=== PATIENT | male | born 1940 | race Caucasian/White ===

== ENCOUNTER 2017-02-01 07:10 | Inpatient (IN) | payer MEDICARE, BC ==
[~2017-02-01] VITALS: Ht 182.9 cm; Wt 73.7 kg
[2017-02-01] VITALS (12 sets, daily range): BP systolic 107–147; BP diastolic 61–71
[~2017-02-01 07:10] MED LIST: AMLO10TA2 PO; ASPI-482 PO; ATOR40TA59 PO; DOXA4TAB3 PO; HYDR-971 PO; IBUP200T43 PO; METH4TAB PO; METO50TA10 PO; MOXI3DRO2 RIGHTEYE; NEPA1.7D RIGHTEYE; PRED5DRO16 RIGHTEYE
[2017-02-01] MEDS ORDERED: DEXAMETHASONE SOD PHOS 10 MG/ML VIAL IM ONE (08:00)
--- NOTE | 2017-02-01 08:01 | ED.ADGEN ---
Past History Past Medical History: Alcoholism, High Cholesterol, Hypertension Past Surgical History: No Surgical History Alcohol Use: Heavy Drug Use: None Adult General HPI HPI Patient is a 76-year-old male presents emergency department complaining of right sided back pain and sciatica. Patient states he has had an MRI and is been diagnosed in the past with sciatica. It is bothering him particularly right now but he denies any new trauma or injury to the area. Patient states he has pain medication at home but does not take it due to the fact that it constipates him. Patient denies any bowel or bladder dysfunction or saddle anesthesia. Patient also tells me he has been drinking almost daily for about a month. He has no intention of seeking help for his alcohol drinking at this time. He does state that he is falls frequently and has some bruising but that he is "tough" and does not need any attention to those areas right now. Review of Systems Review of Systems Constitutional: Denies fever or chills [] Eyes: Denies change in visual acuity, redness, or eye pain [] HENT: Denies nasal congestion or sore throat [] Respiratory: Denies cough or shortness of breath [] Cardiovascular: No additional information not addressed in HPI [] GI: Denies abdominal pain, nausea, vomiting, bloody stools or diarrhea [] : Denies dysuria or hematuria [] Musculoskeletal: Denies back pain or joint pain [] Integument: Denies rash or skin lesions [] Neurologic: Denies headache, focal weakness or sensory changes [] Endocrine: Denies polyuria or polydipsia [] Current Medications Current Medications Current Medications Medications (Trade) Dose Ordered Sig/[facility] Start Time Stop Time Status Last Admin Dose Admin Dexamethasone Sodium Phosphate (Decadron) 10 mg 1X ONCE 02/01/17 08:00 02/01/17 08:01 DC 02/01/17 07:55 10 MG Lorazepam (Ativan) 2 mg PRN Q15MIN PRN 02/01/17 08:45 Ondansetron HCl (Zofran) 4 mg 1X ONCE 02/01/17 09:15 02/01/17 09:16 DC 02/01/17 09:10 4 MG Allergies Allergies Allergies Coded Allergies Type Severity Reaction Last Updated Verified No Known Drug Allergies 02/22/15 No Physical Exam Physical Exam Constitutional: Well developed, well nourished, no acute distress, non-toxic appearance. [] HENT: Normocephalic, atraumatic, bilateral external ears normal, oropharynx moist, no oral exudates, nose normal. [] Eyes: PERRLA, EOMI, conjunctiva normal, no discharge. [] Neck: Normal range of motion, no tenderness, supple, no stridor. [] Cardiovascular:Heart rate regular rhythm, no murmur [] Lungs & Thorax: Bilateral breath sounds clear to auscultation [] Abdomen: Bowel sounds normal, soft, no tenderness, no masses, no pulsatile masses. [] Skin: Warm, dry, no erythema, no rash. [] Back: Right paraspinal tenderness to palpation radiating to the right buttock, [] Extremities: No tenderness, no cyanosis, no clubbing, ROM intact, no edema. [] Neurologic: Alert and oriented X 3, normal motor function, normal sensory function, no focal deficits noted. [] Psychologic: Affect normal, judgement normal, mood normal. [] Current Patient Data Vital Signs Vital Signs Date Time Temp Pulse Resp B/P Pulse Ox O2 Delivery O2 Flow Rate FiO2 02/01/17 07:10 96.0 112 20 96 Room Air Lab Results Laboratory Tests Test 02/01/17 08:50 White Blood Count 8.6x10^3/uL (4.0-11.0) Red Blood Count 4.34x10^6/uL (4.30-5.70) Hemoglobin 14.6g/dL (13.0-17.5) Hematocrit 43.1% (39.0-53.0) Mean Corpuscular Volume 99fL (79-100) Mean Corpuscular Hemoglobin 34pg (25-35) Mean Corpuscular Hemoglobin Concent 34g/dL (31-37) Red Cell Distribution Width 15.5% (11.5-14.5) H Platelet Count 121x10^3/uL (140-400) L Neutrophils (%) (Auto) 60% (31-73) Lymphocytes (%) (Auto) 29% (24-48) Monocytes (%) (Auto) 11% (0-9) H Eosinophils (%) (Auto) 0% (0-3) Basophils (%) (Auto) 1% (0-3) Neutrophils # (Auto) 5.1x10^3uL (1.8-7.7) Lymphocytes # (Auto) 2.5x10^3/uL (1.0-4.8) Monocytes # (Auto) 0.9x10^3/uL (0.0-1.1) Eosinophils # (Auto) 0.0x10^3/uL (0.0-0.7) Basophils # (Auto) 0.1x10^3/uL (0.0-0.2) Sodium Level 139mmol/L (136-145) Potassium Level 4.1mmol/L (3.5-5.1) Chloride Level 100mmol/L (98-107) Carbon Dioxide Level 17mmol/L (21-32) L Anion Gap 22 (6-14) H Blood Urea Nitrogen 25mg/dL (8-26) Creatinine 1.3mg/dL (0.7-1.3) Estimated GFR (Cockcroft-Gault) 53.5 BUN/Creatinine Ratio 19 (6-20) Glucose Level 73mg/dL (70-99) Calcium Level 9.0mg/dL (8.5-10.1) Total Bilirubin 1.7mg/dL (0.2-1.0) H Direct Bilirubin 0.6mg/dL (0.0-0.2) H Aspartate Amino Transferase (AST) 134U/L (15-37) H Alanine Aminotransferase (ALT) 63U/L (16-63) Alkaline Phosphatase 120U/L (46-116) H Total Protein 6.9g/dL (6.4-8.2) Albumin 3.9g/dL (3.4-5.0) Albumin/Globulin Ratio 1.3 (1.0-1.7) Ethyl Alcohol Level 277mg/dL (0-10) H EKG EKG [] Radiology/Procedures Radiology/Procedures [] Course & Med Decision Making Course & Med Decision Making Pertinent Labs and Imaging studies reviewed. (See chart for details) Patient was given a dose of Decadron here in emergency department. I recommended that if he does take his hydrocodone that he take a stool softener with it. At time of discharge, the patient change his mind regarding alcohol detox. He is resting admission for detox. I spoke with Dr. Santiago who agrees. [] Final Impression Final Impression Alcohol detox, Sciatica [] Problems: Dragon Disclaimer Dragon Disclaimer This electronic medical record was generated, in whole or in part, using a voice recognition dictation system. JULEE TIRADO MD Feb 01, 2017 08:01
[2017-02-01] MEDS ORDERED: LORazepam 2 MG/ML VIAL IV PRN ×6 (08:45→19:23)
[2017-02-01 09:04] LABS: BASO # 0.1 x10^3/uL (0.0-0.2); BASO % 1 % (0-3); EOS % 0 % (0-3); HEMATOCRIT 43.1 % (39.0-53.0); HEMOGLOBIN 14.6 g/dL (13.0-17.5); LYMPH # 2.5 x10^3/uL (1.0-4.8); LYMPH % 29 % (24-48); MEAN CORPUSCULAR HEMOGLOBIN 34 pg (25-35); MEAN CORPUSCULAR HGB CONC 34 g/dL (31-37); MEAN CORPUSCULAR VOLUME 99 fL (79-100); MONO # 0.9 x10^3/uL (0.0-1.1); MONO % 11 % (0-9); NEUT # 5.1 x10^3uL (1.8-7.7); NEUT % 60 % (31-73); PLATELET COUNT 121 x10^3/uL (140-400); RED BLOOD COUNT 4.34 x10^6/uL (4.30-5.70); RED CELL DISTRIBUTION WIDTH 15.5 % (11.5-14.5); WHITE BLOOD COUNT 8.6 x10^3/uL (4.0-11.0)
[2017-02-01] MEDS: MVI, ADULT NO.4 WITH VIT K 10 ML, THIAMINE 100 MG, FOLIC ACID 1 MG in IV NORMAL SALINE ... IV SCH ×8 (09:11→09:45)
[2017-02-01] MEDS: LORazepam 2 MG/ML VIAL IV PRN ×5 (09:11→22:04)
[2017-02-01] MEDS ORDERED: ONDANSETRON PF 4 MG/2 ML VIAL. IV ONE (09:15)
[2017-02-01 09:19] LABS: ALBUMIN 3.9 g/dL (3.4-5.0); ALBUMIN/GLOBULIN RATIO 1.3 (1.0-1.7); CREATININE 1.3 mg/dL (0.7-1.3); GFR 53.5; POTASSIUM 4.1 mmol/L (3.5-5.1); TOTAL BILIRUBIN 1.7 mg/dL (0.2-1.0); TOTAL PROTEIN 6.9 g/dL (6.4-8.2)
[2017-02-01 09:33] LABS: DIRECT BILIRUBIN 0.6 mg/dL (0.0-0.2)
[2017-02-01] MEDS ORDERED: ONDANSETRON PF 4 MG/2 ML VIAL. IV PRN (11:00)
--- NOTE | 2017-02-01 11:06 | ACF ---
Admit Criteria Forms Admit Criteria Forms Admit Criteria Forms ALCOHOL AND PSYCHOACTIVE SUBSTANCE WITHDRAWAL Clinical Indications for Inpatient Care (Place ' X' for any and all applicable criteria): Ongoing inpatient care may be indicated for substance withdrawal[B][C] with ANY ONE of the following(1)(2)(3)(4)(21): [ ]I. Delirium due to alcohol or sedative[D] withdrawal is present. [ ]II. Marked signs of withdrawal are present as indicated by ANY ONE of the following(15)(22)(23) [ ]a) Heart rate greater than 120 beats per minute is present. [ ]b) Severe vomiting is present (eg, precludes maintenance of oral hydration). [ ]c) Grossly visible tremor is present. [ ]d) Profuse perspiration is present. [ ]e) Temperature greater than 101 degrees F (38.3 degrees C) is present. [ ]f) Other signs of severe withdrawal are present (eg, Altered mental status ) [ ]g) Severe withdrawal identified by standardized assessment score[A] [ ]III. Signs of withdrawal that require continued inpatient treatment as indicated by ANY ONE of the following(15)(22)(23): [ ]a) Inadequate response to pharmacotherapy (eg, benzodiazepines) [ ]b) Outpatient or lower level of care is not feasible or appropriate (eg, unavailable or inappropriate to patient condition or treatment history). [ ]IV. Withdrawal signs with high-risk indicator are present as manifested by ALL of the following[A](15)(22)(23) [ ]a) Signs of withdrawal are present as indicated by ANY ONE of the following: [ ]i. Tachycardia is present. [ ]ii. Nausea or vomiting is present. [ ]iii. Tremor is present. [ ]iv. Increased perspiration is present. [ ]v. Other signs of withdrawal are present. [ ]vi. Withdrawal identified by standardized assessment score [A] [ ]b) Elevated risk due to historical or comorbid factor is present as indicated by ANY ONE of the following: [ ]i. History of delirium due to withdrawal is present. [ ]ii. History of seizures due to withdrawal is present.[E] [ ]iii. Intrinsic seizure disorder (epilepsy) is present. [ ]iv. Patient is . [ ]v. Other significant medical history (eg, severe cardiac disease) is present, which is assessed to be at risk for destabilization due to withdrawal. [ ]V. Serious electrolyte abnormalities (eg, hyponatremia, hypokalemia, hypophosphatemia) requiring correction performable only in inpatient setting(6)(25) [ ]. Severe hypoglycemia requiring glucose infusions performable only in inpatient setting(6) [X]VII. Drug toxicity or instability, such as Altered mental status, respiratory depression, or arrhythmias, that requires inpatient care [ ]VIII. Danger judged unmanageable at lower level of care because of ANY ONE of the following [ ]a) Danger to self [ ]b) Danger to others [ ]c) Grave disability (eg, inability to perform self-care necessary at lower level of care) The original [facility] Care Guidelines content created by [employer] has been revised. The portions of the content which have been revised are identified through the use of italic text or in bold. [facility] Care [facility] has neither reviewed nor approved the modified material. All other unmodified content is copyright [facility] Care [employer]. Please see references footnoted in the original [employer] edition 2016 AUDRA ENAMORADO Feb 01, 2017 11:06
--- NOTE | 2017-02-01 12:00 | NUR ---
The patient, LAITH GURROLA, 76 y/o, M admitted by LUZ TYLER MD, was given written information regarding hospital policies, unit procedures and contact persons. Patient was situated in bed and remained restless despite medications. Patient has garbled speech and can't provide adequate information. Patient's was called regarding pharmacy used and medications he takes. stated patient has lost 20 pounds and is not eating or taking his medications like he should. Patient's also stated that he has fallen multiple times at home and has several bruises. Patient continues to act impulsive and won't listen to redirection, will continue to monitor. Valuables were checked and left at the bedside with the patient.
--- NOTE | 2017-02-01 15:54 | HP ---
ADMIT DATE: 02/01/2017 HISTORY OF PRESENT ILLNESS: A 76-year-old male came into the Emergency Room with right-sided back pain, been suffering from severe sciatica, but more importantly, the patient came in, he was markedly alebriated. His alcohol level was 277. Apparently, he says that he has not been eating, but has been drinking for the last week straight or possibly even up until a month, has not been eating. The patient notes that he falls frequently. He has been bruising all over his body from the falls. So, the patient was admitted primarily because of his alcohol withdrawal and DTs that he has had in the past and also further evaluation of his back pain with PT and OT. PAST MEDICAL HISTORY: The patient's history shows that of the alcoholism. He has had BPH, arthritis, wears glasses, dentures, cataract surgery, HENT problems, pneumococcal vaccine is up-to-date. ALLERGIES: No known drug allergies. MEDICATIONS: Norvasc 10 mg for blood pressure, aspirin 81, Lipitor 40 mg, doxazosin 4, hydrocodone, ibuprofen 200, methylprednisolone 4 mg daily, metoprolol 50 mg daily, Vigamox and prednisolone eye drops; Ilevro eye drops, right eye. FAMILY HISTORY: Noncontributory. SOCIAL HISTORY: The patient as noted [id number] history of smoking, drinks heavily for weeks at a time and then comes off it. Apparently, he has been having problems with alcoholism for a good part of his life. REVIEW OF SYSTEMS: The patient denies any headaches, visual changes, blurred vision, or double vision. Denies any melena, hematochezia, or hematemesis. little bit, but alebriated. PHYSICAL EXAMINATION: GENERAL: Pleasant white male, looking older than stated age. VITAL SIGNS: Blood pressure 130/70, respiratory rate 20, and pulse 110. Afebrile. HEENT: The patient's head was atraumatic, normocephalic. Eyes: PERRLA without jaundice. Mouth and throat: Poor dentition. NECK: Supple. LUNGS: Clear. CARDIOVASCULAR: Regular sinus rhythm. ABDOMEN: Soft, nontender. No rebound or guarding. Positive bowel sounds. EXTREMITIES: No clubbing, cyanosis or edema. NEUROLOGIC: The patient was alert and oriented x 3, although he does answer some questions in a very precarious way. The patient complains of lower back. IMPRESSION: Alcoholism detox, possible alcoholic encephalopathy due to delirium tremens as well as sciatic pain, and elevated liver enzymes. The patient will be monitored carefully for any other signs of delirium tremens, put on alcohol withdrawal protocol and make further assessment on him as indicated. LUZ TYLER MD DR: IRVIN/adrian JOB#: [id number] / [id number]
[2017-02-01] MEDS: KETOROLAC 30 MG/ML VIAL. IV PRN (17:54)
[2017-02-01] MEDS: ENOXAPARIN 40 MG/0.4 ML DISP.SYRIN. SQ SCH (17:55)
[2017-02-01] MEDS ORDERED: IBUPROFEN 200 MG TABLET PO SCH (18:00)
[2017-02-01] MEDS ORDERED: LORazepam 1 MG TABLET PO PRN ×2 (19:00)
[2017-02-01] MEDS ORDERED: HALOPERIDOL LACT 5 MG/ML VIAL. IM PRN (19:00)
[2017-02-01] MEDS ORDERED: diphenhydrAMINE 50 MG/ML VIAL IVP PRN (19:00)
[2017-02-01 19:08] LABS: ALBUMIN 3.8 g/dL (3.4-5.0); DIRECT BILIRUBIN 0.5 mg/dL (0.0-0.2); TOTAL BILIRUBIN 1.7 mg/dL (0.2-1.0); TOTAL PROTEIN 6.9 g/dL (6.4-8.2)
[2017-02-01 22:02] LABS: AMPHETAMINE/METHAMPHETAMINE NEG (NEG); BARBITURATES NEG (NEG); BENZODIAZEPINES NEG (NEG); CANNABINOIDS NEG (NEG); COCAINE NEG (NEG); METHADONE NEG (NEG); OPIATES NEG (NEG); PHENCYCLIDINE NEG (NEG)
--- NOTE | 2017-02-01 22:25 | RAD ---
PROCEDURE AP portable chest 02/01/2017. HISTORY Hemoptysis. TECHNIQUE COMPARISON FINDINGS Infiltrate is suggested at the left lung base and possibly the mid right lung. Depth of inspiration is shallow, limiting evaluation. There is no large effusion. Heart size appears normal. IMPRESSION Suspected bilateral infiltrates. Electronically signed by: David Montano (Feb 01, 2017 22:23:39)
[2017-02-01 22:38] LABS: BILIRUBIN,URINE NEG (NEG); CLARITY,URINE HAZY; COLOR,URINE YELLOW; GLUCOSE,URINE NEG (NEG); NITRITE,URINE NEG (NEG); UROBILINOGEN,URINE 0.2 mg/dL (0.2 mg/dL)
[2017-02-01 22:40] LABS: BACTERIA,URINE 0 /HPF (0-FEW); WBC,URINE OCC /HPF (0-4)
[2017-02-02] VITALS (21 sets, daily range): BP systolic 96–154; BP diastolic 47–85
[2017-02-02] MEDS: LORazepam 2 MG/ML VIAL IV PRN ×2 (01:01→05:52)
[2017-02-02] MEDS ORDERED: THIAMINE IM 200 MG/2 ML VIAL. IM SCH (09:00)
[2017-02-02] MEDS: THIAMINE 100 MG TABLET. PO SCH (09:00)
[2017-02-02] MEDS: DOXAZOSIN MESYLATE 4 MG TABLET PO SCH (09:00)
[2017-02-02] MEDS: MULTIVITAMIN with MINERAL TABLET. PO SCH (09:00)
[2017-02-02] MEDS: ASPIRIN ENTERIC COATED 81 MG TABLET.DR. PO SCH (09:00)
[2017-02-02] MEDS: FOLIC ACID 1 MG TABLET PO SCH (09:00)
[2017-02-02] MEDS ORDERED: THIAMINE 100 MG in IV NORMAL SALINE 50ML 50 ML IV SCH (09:00)
[2017-02-02] MEDS: amLODIPine BESYLATE 10 MG TABLET PO SCH (09:00)
[2017-02-02] MEDS ORDERED: MVI, ADULT NO.4 WITH VIT K 10 ML, THIAMINE 100 MG, FOLIC ACID 1 MG in IV NORMAL SALINE ... IV SCH ×4 (09:00)
[2017-02-02] MEDS: METOPROLOL SUCC 24HR ER 50 MG TAB.ER.24H. PO SCH (09:00)
[2017-02-02] MEDS: ENOXAPARIN 40 MG/0.4 ML DISP.SYRIN. SQ SCH ×2 (16:45→18:32)
[2017-02-03] VITALS (21 sets, daily range): BP systolic 91–130; BP diastolic 50–74
[2017-02-03] MEDS: MULTIVITAMIN with MINERAL TABLET. PO SCH (08:22)
[2017-02-03] MEDS: DOXAZOSIN MESYLATE 4 MG TABLET PO SCH (08:22)
[2017-02-03] MEDS: amLODIPine BESYLATE 10 MG TABLET PO SCH (08:23)
[2017-02-03] MEDS: METOPROLOL SUCC 24HR ER 50 MG TAB.ER.24H. PO SCH (08:23)
[2017-02-03] MEDS: THIAMINE 100 MG TABLET. PO SCH (08:23)
[2017-02-03] MEDS: FOLIC ACID 1 MG TABLET PO SCH (08:23)
[2017-02-03] MEDS: ASPIRIN ENTERIC COATED 81 MG TABLET.DR. PO SCH (08:24)
[2017-02-03] MEDS: MVI, ADULT NO.4 WITH VIT K 10 ML, THIAMINE 100 MG, FOLIC ACID 1 MG in IV NORMAL SALINE ... IV SCH ×4 (08:28)
[2017-02-03] MEDS: KETOROLAC 30 MG/ML VIAL. IV PRN ×2 (12:24→21:24)
--- NOTE | 2017-02-03 12:41 | NUR ---
I agree with assessments and documentation done today by SN Chester from [facility]. Addendum: 02/03/17 at 1242 by SONIDO WEBSTER RN I agree with assessments and documentation done today by SN Kerline from [facility].
[2017-02-03] MEDS ORDERED: METHYL SALICYLATE/MENTHOL TOPICAL OINTMENT 29GM TUBE. TP PRN (13:15)
[2017-02-03] MEDS: ENOXAPARIN 40 MG/0.4 ML DISP.SYRIN. SQ SCH (16:54)
[2017-02-03] MEDS: LORazepam 2 MG/ML VIAL IV PRN ×3 (18:10→23:54)
[2017-02-03] MEDS ORDERED: IV NORMAL SALINE 500ML 500 ML ONE (18:23)
--- NOTE | 2017-02-03 18:24 | NUR ---
Pt more alert today then he has been the past two days, according to staff. Pt is still very drowsy and oriented to person only. Pt's very slow to respond and speech is slow and slurred. Pt has been cooperative with staff and has been continent a few times today. Pt has been up to chair a couple of times. After dinner, pt tried getting back to bed and became agitated and very restless in bed. Pt given 2mg Ativan IV per [facility] protocol. Drug was diluted and admin. slowly but pt's blood pressure dropped to 85/49. Normal Saline bolus of 500cc given to pt. Pt is alert as he has been all through the shift and answered me appropriately. Will continue to monitor closely.
--- NOTE | 2017-02-03 22:17 | NUR ---
At 2200, pt agitated, gave 1/2 dose of Ativan at 1mg due to previous shift BP dropping after 2mg. Monitored closely, pt still agitated 20min later, gave other 1/2 dose of Ativan while monitoring BP. BP WNL, will CTM.
[2017-02-04] VITALS (17 sets, daily range): BP systolic 93–130; BP diastolic 55–74
[2017-02-04] MEDS ORDERED: SERTRALINE 50 MG TABLET. PO PRN (03:00)
[2017-02-04] MEDS: KETOROLAC 30 MG/ML VIAL. IV PRN (06:35)
[2017-02-04] MEDS: LORazepam 2 MG/ML VIAL IV PRN (06:35)
[2017-02-04 06:37] LABS: BASO % 0 % (0-3); EOS % 0 % (0-3); HEMOGLOBIN 12.7 g/dL (13.0-17.5); LYMPH # 1.3 x10^3/uL (1.0-4.8); LYMPH % 23 % (24-48); MEAN CORPUSCULAR HEMOGLOBIN 34 pg (25-35); MEAN CORPUSCULAR HGB CONC 34 g/dL (31-37); MEAN CORPUSCULAR VOLUME 100 fL (79-100); MONO # 0.5 x10^3/uL (0.0-1.1); MONO % 8 % (0-9); NEUT # 4.1 x10^3uL (1.8-7.7); NEUT % 69 % (31-73); PLATELET COUNT 62 x10^3/uL (140-400); RED BLOOD COUNT 3.78 x10^6/uL (4.30-5.70); RED CELL DISTRIBUTION WIDTH 15.7 % (11.5-14.5); WHITE BLOOD COUNT 5.9 x10^3/uL (4.0-11.0)
[2017-02-04 06:56] LABS: ALBUMIN 2.9 g/dL (3.4-5.0); ALBUMIN/GLOBULIN RATIO 1.1 (1.0-1.7); CALCIUM 8.5 mg/dL (8.5-10.1); CREATININE 0.8 mg/dL (0.7-1.3); GFR 93.7; POTASSIUM 3.6 mmol/L (3.5-5.1); TOTAL PROTEIN 5.5 g/dL (6.4-8.2)
[2017-02-04] MEDS: amLODIPine BESYLATE 10 MG TABLET PO SCH (07:43)
[2017-02-04] MEDS: METOPROLOL SUCC 24HR ER 50 MG TAB.ER.24H. PO SCH (07:43)
[2017-02-04] MEDS: chlordiazePOXIDE HCL 25 MG CAPSULE PO PRN ×2 (08:19→18:34)
[2017-02-04] MEDS: ASPIRIN ENTERIC COATED 81 MG TABLET.DR. PO SCH (08:20)
[2017-02-04] MEDS: DOXAZOSIN MESYLATE 4 MG TABLET PO SCH (08:20)
--- NOTE | 2017-02-04 08:34 | NUR ---
PT still not oriented this am. PT is unable to answer questions. PT can somewhat follow demands. PT can swallow pillls., however is drooling. Sharon GUNN
--- NOTE | 2017-02-04 08:48 | PN ---
DATE: 02/03/2017 NICU bed #2 at [facility]. SUBJECTIVE: The patient with alcohol withdrawal, DTs, and dehydration. He is still extremely weak, still having problems with walking and also seem today trouble with his memory and overall mental status, still receiving B complex compounds for his alcohol withdrawal. In any case, the patient is resting fairly comfortably. PHYSICAL EXAMINATION: VITAL SIGNS: Blood pressure 120/70, respiratory rate 16, pulse 63, and afebrile. GENERAL: The patient is alert, but confused, not responding very well overall. We will continue to monitor the patient accordingly and on to swing bed; otherwise. LUNGS: Diminished, but clear. CARDIOVASCULAR: Stable. ABDOMEN: Soft, nontender. IMPRESSION: Generalized weakness secondary to alcohol, peripheral neuropathy, detox, sciatic pain, elevated liver enzymes. Continue with rehabilitation and monitor for any neurological changes from his withdrawal. LUZ TYLER MD DR: IRVIN/adrian JOB#: [id number] / [id number]
[2017-02-04] MEDS: FOLIC ACID 1 MG TABLET PO SCH (09:00)
[2017-02-04] MEDS: THIAMINE 100 MG TABLET. PO SCH (09:00)
[2017-02-04] MEDS: MULTIVITAMIN with MINERAL TABLET. PO SCH (09:00)
[2017-02-04] MEDS: MVI, ADULT NO.4 WITH VIT K 10 ML, THIAMINE 100 MG, FOLIC ACID 1 MG in IV NORMAL SALINE ... IV SCH ×4 (10:29)
[2017-02-04] MEDS: IV NORMAL SALINE 1,000ML 1,000 ML IV SCH ×2 (13:53→20:00)
[2017-02-04] MEDS: ENOXAPARIN 40 MG/0.4 ML DISP.SYRIN. SQ SCH (16:45)
[2017-02-05] VITALS (15 sets, daily range): BP systolic 83–113; BP diastolic 56–80
[2017-02-05] MEDS: IV NORMAL SALINE 1,000ML 1,000 ML IV SCH ×3 (06:30→22:29)
[2017-02-05 06:36] LABS: BASO % 0 % (0-3); EOS # 0.1 x10^3/uL (0.0-0.7); EOS % 1 % (0-3); HEMATOCRIT 39.8 % (39.0-53.0); HEMOGLOBIN 13.3 g/dL (13.0-17.5); LYMPH # 2.2 x10^3/uL (1.0-4.8); LYMPH % 26 % (24-48); MEAN CORPUSCULAR HEMOGLOBIN 34 pg (25-35); MEAN CORPUSCULAR HGB CONC 33 g/dL (31-37); MEAN CORPUSCULAR VOLUME 100 fL (79-100); MONO # 0.6 x10^3/uL (0.0-1.1); MONO % 7 % (0-9); NEUT # 5.6 x10^3uL (1.8-7.7); NEUT % 67 % (31-73); PLATELET COUNT 64 x10^3/uL (140-400); RED BLOOD COUNT 3.97 x10^6/uL (4.30-5.70); RED CELL DISTRIBUTION WIDTH 15.5 % (11.5-14.5); WHITE BLOOD COUNT 8.3 x10^3/uL (4.0-11.0)
[2017-02-05 06:39] LABS: CALCIUM 8.2 mg/dL (8.5-10.1); CREATININE 0.9 mg/dL (0.7-1.3); GFR 81.8; POTASSIUM 3.4 mmol/L (3.5-5.1)
[2017-02-05] MEDS: DOXAZOSIN MESYLATE 4 MG TABLET PO SCH (07:07)
[2017-02-05] MEDS: THIAMINE 100 MG TABLET. PO SCH (07:07)
[2017-02-05] MEDS: MULTIVITAMIN with MINERAL TABLET. PO SCH (07:07)
[2017-02-05] MEDS: chlordiazePOXIDE HCL 25 MG CAPSULE PO PRN ×3 (07:07→22:55)
[2017-02-05] MEDS: amLODIPine BESYLATE 10 MG TABLET PO SCH ×2 (07:08→09:00)
[2017-02-05] MEDS: METOPROLOL SUCC 24HR ER 50 MG TAB.ER.24H. PO SCH ×2 (07:08→09:00)
[2017-02-05] MEDS: FOLIC ACID 1 MG TABLET PO SCH (07:08)
[2017-02-05] MEDS: ASPIRIN ENTERIC COATED 81 MG TABLET.DR. PO SCH (07:10)
--- NOTE | 2017-02-05 07:17 | NUR ---
PT more awake this am. Pt is up to chair and able to verbalize understanding of poc. PT is alert. Sharon GUNN
[2017-02-05] MEDS ORDERED: DEXTROSE 50% 25 GM / 50ML DISP.SYRIN. IV ONE (11:13)
[2017-02-05] MEDS: CALCIUM CARBONATE 500 MG TAB.CHEW PO PRN ×2 (15:09→22:55)
[2017-02-05] MEDS: ENOXAPARIN 40 MG/0.4 ML DISP.SYRIN. SQ SCH (16:45)
[2017-02-05] MEDS: LORazepam 2 MG/ML VIAL IV PRN ×2 (18:21→22:40)
--- NOTE | 2017-02-05 18:25 | NUR ---
PT sitting up in chair. PT is able to speak more clearly today, however still confused most of the time. PT is able to recall and where he is now. PT said he want's all the 'tubes' out because he is going through this window if he has pt. Reoriented patient that he is in the hospital and too weak to go home. PT still pulling of wires and attempting to get up with out assistance. PRN librium was given at dinner and unsuccessful. PRN ativan given. Sharon GUNN
--- NOTE | 2017-02-05 19:02 | HP ---
ADMIT DATE: 02/05/2017 PSYCHIATRIC ADMISSION HISTORY/EVALUATION IDENTIFYING DATA: The patient is a 76-year-old male referred to us from the [facility] after he was evaluated by his primary care physician there earlier in the day of admission and referred on account of worsening confusion, wandering agitation, being noncompliant with medications, verbally aggressive. Concerns noted were that he lives at home with his , it is potentially dangerous, unable to be managed by his , needing psychiatric stabilization and perhaps assisted placement. Reviewed current past records, records from . CHIEF COMPLAINT: "No." HISTORY OF PRESENT ILLNESS: The patient is extremely confused, unable to answer direct questions, perhaps oriented just to himself. I have already been called on him earlier in the day today on account of his marked agitation, aggression, and I was pages as an emergency and we started Zyprexa p.r.n., which has helped. Additionally, he has blood sugar was elevated at 589 and we started on insulin, which again might be helping somewhat with his agitation. The patient has a long history of dementia, Alzheimer's vascular type. Recently, he has been getting more abrasive, aggressive, agitated with his , wandering out of the house. No clear symptoms of bipolar disorder, suicidal or homicidal ideation. PAST PSYCHIATRIC HISTORY: As above. MEDICAL HISTORY: Diabetes mellitus, mitral valve repair, cardiomegaly, coronary artery disease status post coronary artery bypass graft, BPH, aneurysm, prostate cancer, abdominal aortic aneurysm, hyperlipidemia, chronic kidney disease, left heart failure, upper respiratory tract infection. ALLERGIES: CODEINE, MEPERIDINE, IODINE, SHELLFISH. CURRENT PSYCHOTROPICS: Trazodone 25 mg at bedtime, Zyprexa p.r.n. He is on vitamin D supplements. He is a full code. FAMILY HISTORY: Noncontributory. SOCIAL HISTORY: The patient lives at home with his . No alcohol, drug abuse, physical, sexual or elder abuse history is noted. He is not known to be a perpetrator. MENTAL STATUS EXAMINATION: The patient is oriented to himself. Insight, judgment, recent and remote memory, attention, concentration, fund of knowledge poor, consistent with his diagnosis. He appears quite paranoid, suspicious, labile in his mood, unable to quite follow along how to eat his dinner and staff had to assist him. LABORATORY DATA: Reviewed. VITAL SIGNS: Temperature 97.3, pulse 92 and BP 125/81. IMPRESSION: Major neurocognitive disorder, Alzheimer, vascular with depression, delusion, behavioral disturbance; anxiety disorder, unspecified; impulse control disorder, unspecified. Rest diagnoses as above. PLAN: Admit to geropsychiatry unit at [facility]. I will see the patient daily individually from a psychiatric standpoint and medical followup with Dr. Braden/Dr. Nobles. Continue the patient on his current psychotropics, observe baseline, adjust further as clinically indicated. MAN Jerry MCDONALD MD DR: ELIZABETH/adrian JOB#: [id number] / [id number]
[2017-02-06] MEDS: LORazepam 2 MG/ML VIAL IV PRN (02:21)
[2017-02-06 02:37] VITALS: BP 117/72
--- NOTE | 2017-02-06 04:15 | NUR ---
Pt woke up and became combative, cursing staff, ripping lead wires off and trying to pull out IV that was just inserted 2 hours from him pulling the previous IV out. Pt was given higher dose of Ativan and Librium per orders/CIWA scale. After 50 minutes pt went to sleep. Will continue to monitor. Pt was not like this earlier in the shift.
[2017-02-06] MEDS: chlordiazePOXIDE HCL 25 MG CAPSULE PO PRN (04:35)
[2017-02-06 05:16] VITALS: BP 119/65
[2017-02-06 06:36] VITALS: BP 115/68
[2017-02-06 06:51] LABS: CALCIUM 8.2 mg/dL (8.5-10.1); CREATININE 0.7 mg/dL (0.7-1.3); GFR 109.4; MAGNESIUM 1.9 mg/dL (1.8-2.4); POTASSIUM 3.3 mmol/L (3.5-5.1)
[2017-02-06] MEDS: THIAMINE 100 MG TABLET. PO SCH (08:05)
[2017-02-06] MEDS: DOXAZOSIN MESYLATE 4 MG TABLET PO SCH (08:05)
[2017-02-06] MEDS: MULTIVITAMIN with MINERAL TABLET. PO SCH (08:05)
[2017-02-06] MEDS: ASPIRIN ENTERIC COATED 81 MG TABLET.DR. PO SCH (08:05)
[2017-02-06] MEDS: FOLIC ACID 1 MG TABLET PO SCH (08:05)
[2017-02-06] MEDS: METOPROLOL SUCC 24HR ER 50 MG TAB.ER.24H. PO SCH (09:00)
[2017-02-06] MEDS: amLODIPine BESYLATE 10 MG TABLET PO SCH (09:00)
[2017-02-06 09:10] LABS: BASO % 0 % (0-3); EOS # 0.1 x10^3/uL (0.0-0.7); EOS % 1 % (0-3); HEMATOCRIT 40.9 % (39.0-53.0); HEMOGLOBIN 13.8 g/dL (13.0-17.5); LYMPH # 1.7 x10^3/uL (1.0-4.8); LYMPH % 26 % (24-48); MEAN CORPUSCULAR HEMOGLOBIN 34 pg (25-35); MEAN CORPUSCULAR HGB CONC 34 g/dL (31-37); MEAN CORPUSCULAR VOLUME 99 fL (79-100); MONO # 0.7 x10^3/uL (0.0-1.1); MONO % 11 % (0-9); NEUT # 3.9 x10^3uL (1.8-7.7); NEUT % 62 % (31-73); PLATELET COUNT 87 x10^3/uL (140-400); RED BLOOD COUNT 4.11 x10^6/uL (4.30-5.70); RED CELL DISTRIBUTION WIDTH 15.4 % (11.5-14.5); WHITE BLOOD COUNT 6.4 x10^3/uL (4.0-11.0)
[2017-02-06 10:18] VITALS: BP 85/54
[2017-02-06] MEDS ORDERED: IV NORMAL SALINE 500ML 500 ML ONE (10:21)
[2017-02-06 10:46] VITALS: BP 105/71
[2017-02-06] MEDS: IV NORMAL SALINE 1,000ML 1,000 ML IV SCH (11:34)
[2017-02-06] MEDS ORDERED: TAMSULOSIN 0.4 MG CAP.ER.24H. PO SCH (13:00)
[2017-02-06] MEDS ORDERED: POTASSIUM CHLORIDE 20 MEQ TABLET.ER. PO ONE (13:30)
[2017-02-06 13:34] VITALS: BP 138/84
[2017-02-06] MEDS ORDERED: TAMS0.4C97 PO (14:20)
[2017-02-06] MEDS ORDERED: CALC200T23 PO (14:20)
[2017-02-06] MEDS ORDERED: KETO30VI27 IV (14:20)
[2017-02-06] MEDS ORDERED: Thiamine Hcl PO (14:20)
[2017-02-06] MEDS ORDERED: MULT1TAB90 PO (14:20)
[2017-02-06] MEDS ORDERED: Folic Acid PO (14:20)
[2017-02-06] MEDS ORDERED: SERT50TA8 PO (14:20)
[2017-02-06] MEDS ORDERED: METH29OI TP (14:20)
--- NOTE | 2017-02-06 14:28 | NUR ---
Discharge Note: LAITH GURROLA Discharge instructions and discharge home medications reviewed with Other facility and a copy given. All questions have been answered and understanding verbalized. Discharge instructions and handouts were given to RN Peripheral IV intact. Patient discharged to Swing Bed to staff via Ambulated
--- NOTE | 2017-02-06 15:25 | RAD ---
Portable chest, 02/06/2017: History: Possible pneumonia Comparison is made to a study from 02/01/2017. The heart size and pulmonary vascularity are normal. There are mild left basilar retrocardiac opacities suggesting infiltrate there is also a hazy opacity laterally in the right lower chest. Similar findings were present on the previous exam. No new abnormality is detected. IMPRESSION: Persistent bibasilar parenchymal opacities suspicious for pneumonia. CT scanning may be useful for further evaluation, if clinically indicated.
--- NOTE | 2017-02-09 03:23 | PN ---
DATE: 02/08/2017 SUBJECTIVE: The patient was seen on rounds the evening of 02/08/2017. Discussed with staff, reviewed the chart. This note covers elements not covered in my initial note. The patient has been a little more awake, less confused today, still irritable, somewhat paranoid. MENTAL STATUS EXAM: Oriented to himself and situation. He knew he was at hospital, unaware of the name of the hospital. Speech coherent, often responses monosyllabic. Abstraction fair, computation impaired, language function intact, attention span short. LABORATORY DATA: Reviewed. IMPRESSION: Unchanged from initial note. PLAN: No change from a psychiatric standpoint. If psychotic symptoms are evident, may need low-dose atypical antipsychotic. I would like to give it another day or two before deciding. MAN Jerry MCDONALD MD DR: ELIZABETH/adrian JOB#: [id number] / [id number]
[2017-02-14] MEDS ORDERED: DICL100G18 TP (10:56)
--- NOTE | 2017-03-04 23:07 | DS ---
DATE OF DISCHARGE: 02/06/2017 HOSPITAL COURSE: This is a 76-year-old gentleman came in with severe right lower back pain, severe sciatica; however, the patient was noted to be in DT. He was in alcohol withdrawal and he suffered alcoholic encephalopathy and delirium tremens. He became increasingly confused, disoriented; however, with proper hydration, and the patient made excellent progress during the rest of his hospitalization. He became more steady, although he still required to be in a very close monitoring of situation, was transferred to the swing bed. Dr. Brar was kind enough to review the patient, made kindly suggestions about his care. In any case, the patient made excellent progress during the rest of his hospitalization. He was slightly low on his potassium of 3.3. Liver enzymes were also elevated in the 130 range and his alcohol level was approximately 280. IMPRESSION: Alcoholic encephalopathy, pneumonia of unspecified etiology, alcoholism, hypokalemia, [id number] protein malnutrition. Otherwise, hypotension, change in mental status, and confusion. The patient will be discharged from the swing bed, made further evaluation, see MRAD. Decreased activity. Continue PT, OT. LUZ TYLER MD DR: IRVIN/adrian JOB#: [id number] / [id number]
== END 2017-02-06 14:31 | disposition swing bed (61) | DRG 56 ==
LOC: ER 07:10 → ICU 09:20
PROVIDERS: ADMIT Family Medicine; ATTEND Family Medicine
DX: G31.2 Degeneration of nervous system due to alcohol (principal); J96.20 Acute and chronic respiratory failure, unspecified whether with hypoxia or hypercapnia; J18.9 Pneumonia, unspecified organism; F10.231 Alcohol dependence with withdrawal delirium; F01.51 Vascular dementia, unspecified severity, with behavioral disturbance; F02.81 Dementia in other diseases classified elsewhere, unspecified severity, with behavioral disturbance; I13.0 Hypertensive heart and chronic kidney disease with heart failure and stage 1 through stage 4 chronic kidney disease, or unspecified chronic kidney disease; E44.0 Moderate protein-calorie malnutrition; M54.30 Sciatica, unspecified side; E11.22 Type 2 diabetes mellitus with diabetic chronic kidney disease; E11.65 Type 2 diabetes mellitus with hyperglycemia; E78.00 Pure hypercholesterolemia, unspecified; E78.5 Hyperlipidemia, unspecified; E86.0 Dehydration; F32.9 Major depressive disorder, single episode, unspecified; F41.9 Anxiety disorder, unspecified; F63.9 Impulse disorder, unspecified; M19.90 Unspecified osteoarthritis, unspecified site; G30.9 Alzheimer's disease, unspecified; E11.42 Type 2 diabetes mellitus with diabetic polyneuropathy; I25.10 Atherosclerotic heart disease of native coronary artery without angina pectoris; N18.9 Chronic kidney disease, unspecified; N40.0 Benign prostatic hyperplasia without lower urinary tract symptoms; R29.6 Repeated falls; Y90.8 Blood alcohol level of 240 mg/100 ml or more; Z85.46 Personal history of malignant neoplasm of prostate; Z87.891 Personal history of nicotine dependence; Z95.1 Presence of aortocoronary bypass graft
CPT/HCPCS: 36415; 71010; 80048; 80053; 80076; 81001; 82248; 83735; 85027; 87641; 96372; 96374; G0480; G0481; J0696; J1100; J1650; J1885; J2060; J2405; J7040; 97110; 97116; 97530; 97535; 99285-25; J7030

== ENCOUNTER 2017-02-06 14:00 | Inpatient (IN) | payer MEDICARE, BC ==
[~2017-02-06] VITALS: Ht 182.9 cm; Wt 76.2 kg
[~2017-02-06 14:00] MED LIST changes: -PRED5DRO16 RIGHTEYE; +PRED5DRO6 RIGHTEYE
[2017-02-06] MEDS ORDERED: CALC200T23 PO (14:20)
[2017-02-06] MEDS ORDERED: Thiamine Hcl PO (14:20)
[2017-02-06] MEDS ORDERED: KETO30VI IV (14:20)
[2017-02-06] MEDS ORDERED: TAMS0.4C97 PO (14:20)
[2017-02-06] MEDS ORDERED: METH29OI TP (14:20)
[2017-02-06] MEDS ORDERED: Folic Acid PO (14:20)
[2017-02-06] MEDS ORDERED: SERT50TA8 PO (14:20)
[2017-02-06] MEDS ORDERED: MULT1TAB90 PO (14:20)
[2017-02-06 14:40] VITALS: BP 138/84
[2017-02-06] MEDS ORDERED: KETOROLAC 30 MG/ML VIAL. IV PRN (15:15)
[2017-02-06] MEDS ORDERED: METHYL SALICYLATE/MENTHOL TOPICAL OINTMENT 29GM TUBE. TP PRN (15:15)
[2017-02-06 15:43] VITALS: BP 123/72
--- NOTE | 2017-02-06 19:58 | PDOC ---
Exam Sage Demential Exam: Sage Note: Please also refer to the separate dictated note~for this date of service dictated separately.~Patient seen individually. Discussed the patient with Nursing staff reviewed the chart.~Reviewed interim history and current functioning. Reviewed vital signs,~Labs/ Radiology~and current medications noted below. Continue current treatment with the changes noted in the dictated addendum note Assessment: Vital Signs: Vital Signs Date Time Temp Pulse Resp B/P Pulse Ox O2 Delivery O2 Flow Rate FiO2 02/06/17 15:43 97.2 83 20 123/72 96 Room Air Current Medications: Meds: Current Medications Calcium Carbonate/ Glycine (Tums) 500 mg PRN AFTMEALHC PRN PO INDIGESTION; Start 02/06/17 at 15:15 Ketorolac Tromethamine (Toradol) 30 mg PRN Q6HRS PRN IV PAIN; Start 02/06/17 at 15:15; Stop 02/11/17 at 15:14 Multi-Ingredient Ointment (Analgesic [place]) 1 sara PRN QID PRN TP MUSCLE PAIN; Start 02/06/17 at 15:15 Multivitamins/ Calcium (Thera-M Plus) 1 tab DAILY PO ; Start 02/07/17 at 09:00 Sertraline HCl (Zoloft) 50 mg DAILY PO ; Start 02/07/17 at 09:00 Tamsulosin HCl (Flomax) 0.4 mg DAILY PO ; Start 02/07/17 at 09:00 Folic Acid (Folic Acid) 1 mg DAILY PO ; Start 02/07/17 at 09:00 Thiamine HCl (Vitamin B-1) 100 mg DAILY PO ; Start 02/07/17 at 09:00 Olanzapine (Zyprexa) 2.5 mg PRN Q2HR PRN PO PSYCHOSIS; Start 02/06/17 at 18:30 Active Scripts Active [Thiamine Hcl] 100 MG Tablet 100 Mg PO DAILY Flomax (Tamsulosin Hcl) 0.4 Mg Cap.er.24h 0.4 Mg PO DAILY Sertraline Hcl 50 Mg Tablet 50 Mg PO DAILY Thera-M Tablet (Multivits,Ca,Minerals/Iron/Fa) 1 Each Tablet 1 Tab PO DAILY Analgesic [place] (Methyl Salicylate/Menthol) 29 Gm Oint...g. 1 Sara TP PRN QID PRN 14 Days Ketorolac Tromethamine 30 Mg/1 Ml Vial 30 Mg IV PRN Q6HRS PRN 3 Days [Folic Acid] 1 MG Tablet 1 Mg PO DAILY Calcium Carbonate 200 Mg Tab.chew 500 Mg PO PRN AFTMEALHC PRN YODIT MCDONALD MD Feb 06, 2017 19:58
[2017-02-06] MEDS: OLANZAPINE 2.5 MG TABLET PO PRN (21:04)
--- NOTE | 2017-02-06 22:26 | PN ---
DATE: SUBJECTIVE: He is resting fairly comfortably, still very confused, disoriented showing signs of encephalopathy, metabolic, no doubt from his problem with his alcoholism, apparently was agitated last night, nurses had to give him Ativan, helped. OBJECTIVE: VITAL SIGNS: Blood pressure 115/60, respiratory rate ____, pulse 90, afebrile. GENERAL: The patient is alert, but confused and mumbling, not showing much strength. Continue with PT, OT ____. LUNGS: Diminished, but clear. CARDIOVASCULAR: Stable. ABDOMEN: Soft. LABORATORY DATA: Sodium is 139 ____ 3.3. BUN and creatinine were basically stable. Liver enzymes show some improvement with his decrease obviously the alcohol intake. PLAN: We will go ahead and continue to monitor the patient currently to make sure he has stabilized and we will continue to monitor him. We will repeat chest x-ray and monitor there. IMPRESSION: Metabolic encephalopathy, alcoholism, delirium tremens, continue to monitor accordingly. LUZ TYLER MD DR: IRVIN/adrian JOB#: [id number] / [id number]
--- NOTE | 2017-02-07 03:49 | CONS ---
DATE OF CONSULTATION: 02/06/2017 PSYCHIATRIC CONSULTATION IDENTIFYING DATA: The patient is a 76-year-old male referred by Dr. Santiago for a psychiatric consult on account of increasing confusion, agitation within the context of his alcohol detoxification. Reportedly, every time, attempts are made to taper off the Ativan, he becomes extremely agitated, kicking, disruptive and remains quite confused, paranoid and psychotic. The patient seen individually, discussed with nursing staff, reviewed the chart. CHIEF COMPLAINT: "What you want." HISTORY OF PRESENT ILLNESS: The patient presented to the ER with right-sided back pain suffering from severe sciatica and marked inebriation. His blood alcohol was 277. He has been living at home with his and was not eating, was agitated, aggressive towards his . He had been drinking for the last week straight and not eating very well almost for a month. He was having frequent falls, had bruises all over his body from the falls. He was admitted for alcohol withdrawal, DTs and for workup of this pain. Initial admission was on 02/01/2017 and he was transferred to the snf care on 02/06/2017 and then referred for a psychiatric consult on account of the above. Reportedly, the patient is also being depressed, withdrawn, intermittently psychotic and delirious as above. No clear history of bipolar disorder, suicidal or homicidal ideation. No clear history of drug abuse. DRUG ALLERGIES: Negative. PAST MEDICAL HISTORY: Positive for hypertension, hyperlipidemia. Full code, no known drug allergies. FAMILY HISTORY: Noncontributory. SOCIAL HISTORY: The patient lives at home with his who is not willing to have him back because she is concerned about safety in the home. He has a 40-year history of smoking, drinks heavily for weeks at a time and then comes off of it. He was sober for about 2 years and for the past 1 month, he has been having increasing alcohol usage as noted. REVIEW OF SYSTEMS: Positive for some tiredness, apathy of motivation. No CV, , pulmonary, eye system symptoms on review. Reliability poor. MENTAL STATUS EXAMINATION: The patient is oriented to himself. 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 Recent memory is impaired. He is unaware of the date, who the president is or where he was. Speech moderate latency, often responses monosyllabic. Insight, judgment, recent memory is impaired. Language function intact. Mood and affect, he is quite paranoid, suspicious, depressed and anxious. VITAL SIGNS: Temperature 97.2, pulse 83, BP 123/72. 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 PLAN: Continue thiamine 100 mg p.o. daily. We will add Zyprexa 2.5 mg q.2h p.r.n. psychosis, agitation, max 10 mg in 24 hours and start Zoloft 50 mg a day. If mood lability, paranoia, agitation persists, we may have to start scheduled atypical antipsychotics. It appears he may need placement in a nursing facility rather than returning home, but I will defer this to social service/case management intervention. Dr. Santiago, thank you for the opportunity to participate in your patient's care. We will follow with you. MAN Jerry MCDONALD MD DR: ELIZABETH/adrian JOB#: [id number] / [id number]
[2017-02-07 05:30] VITALS: BP 127/77
[2017-02-07] MEDS: MULTIVITAMIN with MINERAL TABLET. PO SCH (08:42)
[2017-02-07] MEDS: SERTRALINE 50 MG TABLET. PO SCH (08:42)
[2017-02-07] MEDS: FOLIC ACID 1 MG TABLET PO SCH (08:42)
[2017-02-07] MEDS: TAMSULOSIN 0.4 MG CAP.ER.24H. PO SCH (08:43)
[2017-02-07] MEDS: CALCIUM CARBONATE 500 MG TAB.CHEW PO PRN (08:43)
[2017-02-07] MEDS: THIAMINE 100 MG TABLET. PO SCH (08:43)
[2017-02-07 11:39] VITALS: BP 142/80
[2017-02-07 14:29] VITALS: BP 127/73
[2017-02-07 19:00] VITALS: BP 123/79
--- NOTE | 2017-02-07 21:58 | PDOC ---
Exam Sage Demential Exam: Sage Note: Please also refer to the separate dictated note~for this date of service dictated separately.~Patient seen individually. Discussed the patient with Nursing staff reviewed the chart.~Reviewed interim history and current functioning. Reviewed vital signs,~Labs/ Radiology~and current medications noted below. Continue current treatment with the changes noted in the dictated addendum note Assessment: Vital Signs: Vital Signs Date Time Temp Pulse Resp B/P Pulse Ox O2 Delivery O2 Flow Rate FiO2 02/07/17 20:00 Room Air 02/07/17 19:00 98.4 77 16 123/79 98 I&O Intake and Output 02/07/17 07:00 Output Total 250 ml Balance -250 ml Output Urine Total 250 ml # Voids 4 Current Medications: Meds: Current Medications Calcium Carbonate/ Glycine (Tums) 500 mg PRN AFTMEALHC PRN PO INDIGESTION Last administered on 02/07/17 08:43; Start 02/06/17 at 15:15 Ketorolac Tromethamine (Toradol) 30 mg PRN Q6HRS PRN IV PAIN; Start 02/06/17 at 15:15; Stop 02/11/17 at 15:14 Multi-Ingredient Ointment (Analgesic [place]) 1 sara PRN QID PRN TP MUSCLE PAIN; Start 02/06/17 at 15:15 Multivitamins/ Calcium (Thera-M Plus) 1 tab DAILY PO Last administered on 08:42; Start 02/07/17 at 09:00 Sertraline HCl (Zoloft) 50 mg DAILY PO Last administered on 02/07/17 08:42; Start 02/07/17 at 09:00 Tamsulosin HCl (Flomax) 0.4 mg DAILY PO Last administered on 02/07/17 08:43; Start 02/07/17 at 09:00 Folic Acid (Folic Acid) 1 mg DAILY PO Last administered on 02/07/17 08:42; Start 02/07/17 at 09:00 Thiamine HCl (Vitamin B-1) 100 mg DAILY PO Last administered on 02/07/17 08:43 ; Start 02/07/17 at 09:00 Olanzapine (Zyprexa) 2.5 mg PRN Q2HR PRN PO PSYCHOSIS Last administered on 02/06 21:04; Start 02/06/17 at 18:30 Active Scripts Active [Thiamine Hcl] 100 MG Tablet 100 Mg PO DAILY Flomax (Tamsulosin Hcl) 0.4 Mg Cap.er.24h 0.4 Mg PO DAILY Sertraline Hcl 50 Mg Tablet 50 Mg PO DAILY Thera-M Tablet (Multivits,Ca,Minerals/Iron/Fa) 1 Each Tablet 1 Tab PO DAILY Analgesic [place] (Methyl Salicylate/Menthol) 29 Gm Oint...g. 1 Sara TP PRN QID PRN 14 Days Ketorolac Tromethamine 30 Mg/1 Ml Vial 30 Mg IV PRN Q6HRS PRN 3 Days [Folic Acid] 1 MG Tablet 1 Mg PO DAILY Calcium Carbonate 200 Mg Tab.chew 500 Mg PO PRN AFTMEALHC PRN YODIT MCDONALD MD Feb 07, 2017 21:58
[2017-02-08] MEDS: THIAMINE 100 MG TABLET. PO SCH (09:07)
[2017-02-08] MEDS: MULTIVITAMIN with MINERAL TABLET. PO SCH (09:07)
[2017-02-08] MEDS: FOLIC ACID 1 MG TABLET PO SCH (09:07)
[2017-02-08] MEDS: SERTRALINE 50 MG TABLET. PO SCH (09:07)
[2017-02-08] MEDS: TAMSULOSIN 0.4 MG CAP.ER.24H. PO SCH (09:07)
[2017-02-08] MEDS: CALCIUM CARBONATE 500 MG TAB.CHEW PO PRN ×3 (09:08→21:38)
[2017-02-08 11:10] VITALS: BP 122/72
--- NOTE | 2017-02-08 11:25 | PN ---
DATE: 02/07/2017 SUBJECTIVE: The patient was seen on rounds the evening of 02/07/2017. Discussed with nursing staff and reviewed the chart. Overall, per nursing report, the patient is still withdrawn, not very interactive and responsive, and confused, but less agitated as compared to earlier. Temperature 98.4, pulse 77, and BP 123/79. REVIEW OF SYSTEMS: No CV, , pulmonary, or eye system symptoms on review. He is not interactive at all. In fact, nonverbal. MENTAL STATUS EXAM: Oriented to himself. Insight and judgment is impaired. Attention span short per her description and observation per nursing staff. No active suicidal or homicidal ideation. LABORATORY DATA: Reviewed. 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 PLAN: No change from a psychiatric standpoint. Maintain Zyprexa p.r.n. He is also on Zoloft 50 mg a day and thiamine. The patient remains on care home care. YODIT MCDONALD MD DR: ELIZABETH/adrian JOB#: [id number] / [id number]
--- NOTE | 2017-02-08 14:21 | RAD ---
PORTABLE CHEST 1V Clinical Indication: shortness of breath Comparison: February 06, 2017. Technique: Upright portable AP view of the chest is obtained. Findings: The patient is slightly rotated to the right. No interval consolidation, pleural effusion or pneumothorax is seen. There is improved aeration of the left lung base, with minimal interstitial opacity remaining. Right lung appears clear. Cardiomediastinal silhouette is stable in size. Visualized osseous structures and overlying soft tissues demonstrate no acute interval change. IMPRESSION: Improved aeration of the lung bases, with minimal residual interstitial opacity on the left. No interval consolidation.
[2017-02-08 19:07] VITALS: BP 101/68
[2017-02-08] MEDS: DICLOFENAC SODIUM 1% TOPICAL GEL 100GM TUBE. TP SCH (19:28)
--- NOTE | 2017-02-08 21:17 | PDOC ---
Exam Sage Demential Exam: Sage Note: Please also refer to the separate dictated note~for this date of service dictated separately.~Patient seen individually. Discussed the patient with Nursing staff reviewed the chart.~Reviewed interim history and current functioning. Reviewed vital signs,~Labs/ Radiology~and current medications noted below. Continue current treatment with the changes noted in the dictated addendum note Assessment: Vital Signs: Vital Signs Date Time Temp Pulse Resp B/P Pulse Ox O2 Delivery O2 Flow Rate FiO2 02/08/17 19:07 97.3 85 18 101/68 95 Room Air I&O Intake and Output 02/08/17 07:00 Intake Total 560 ml Output Total 1600 ml Balance -1040 ml Intake Oral 560 ml Output Urine Total 1600 ml # Voids 5 Current Medications: Meds: Current Medications Calcium Carbonate/ Glycine (Tums) 500 mg PRN AFTMEALHC PRN PO INDIGESTION Last administered on 02/08/17 17:00; Start 02/06/17 at 15:15 Ketorolac Tromethamine (Toradol) 30 mg PRN Q6HRS PRN IV PAIN; Start 02/06/17 at 15:15; Stop 02/11/17 at 15:14 Multi-Ingredient Ointment (Analgesic [place]) 1 sara PRN QID PRN TP MUSCLE PAIN Last administered on 02/08/17 19:28; Start 02/06/17 at 15:15 Multivitamins/ Calcium (Thera-M Plus) 1 tab DAILY PO Last administered on 09:07; Start 02/07/17 at 09:00 Sertraline HCl (Zoloft) 50 mg DAILY PO Last administered on 02/08/17 09:07; Start 02/07/17 at 09:00 Tamsulosin HCl (Flomax) 0.4 mg DAILY PO Last administered on 02/08/17 09:07; Start 02/07/17 at 09:00 Folic Acid (Folic Acid) 1 mg DAILY PO Last administered on 02/08/17 09:07; Start 02/07/17 at 09:00 Thiamine HCl (Vitamin B-1) 100 mg DAILY PO Last administered on 02/08/17 09:07 ; Start 02/07/17 at 09:00 Olanzapine (Zyprexa) 2.5 mg PRN Q2HR PRN PO PSYCHOSIS Last administered on 02/06 21:04; Start 02/06/17 at 18:30 Diclofenac Sodium (Voltaren) 1 sara BID TP Last administered on 02/08/17 19:28 ; Start 02/08/17 at 21:00 Active Scripts Active [Thiamine Hcl] 100 MG Tablet 100 Mg PO DAILY Flomax (Tamsulosin Hcl) 0.4 Mg Cap.er.24h 0.4 Mg PO DAILY Sertraline Hcl 50 Mg Tablet 50 Mg PO DAILY Thera-M Tablet (Multivits,Ca,Minerals/Iron/Fa) 1 Each Tablet 1 Tab PO DAILY Analgesic [place] (Methyl Salicylate/Menthol) 29 Gm Oint...g. 1 Sara TP PRN QID PRN 14 Days Ketorolac Tromethamine 30 Mg/1 Ml Vial 30 Mg IV PRN Q6HRS PRN 3 Days [Folic Acid] 1 MG Tablet 1 Mg PO DAILY Calcium Carbonate 200 Mg Tab.chew 500 Mg PO PRN AFTMEALHC PRN YODIT MCDONALD MD Feb 08, 2017 21:17
[2017-02-09] MEDS: MULTIVITAMIN with MINERAL TABLET. PO SCH (09:42)
[2017-02-09] MEDS: SERTRALINE 50 MG TABLET. PO SCH (09:42)
[2017-02-09] MEDS: TAMSULOSIN 0.4 MG CAP.ER.24H. PO SCH (09:42)
[2017-02-09] MEDS: THIAMINE 100 MG TABLET. PO SCH (09:43)
[2017-02-09] MEDS: FOLIC ACID 1 MG TABLET PO SCH (09:43)
[2017-02-09] MEDS: DICLOFENAC SODIUM 1% TOPICAL GEL 100GM TUBE. TP SCH ×2 (10:16→20:54)
[2017-02-09 11:28] VITALS: BP 107/69
[2017-02-09] MEDS: MAGNESIUM HYDROXIDE 2,400 MG/30 ML ORAL.SUSP. PO PRN (18:47)
[2017-02-09 19:06] VITALS: BP 112/70
--- NOTE | 2017-02-09 20:50 | PDOC ---
Exam Sage Demential Exam: Sage Note: Please also refer to the separate dictated note~for this date of service dictated separately.~Patient seen individually. Discussed the patient with Nursing staff reviewed the chart.~Reviewed interim history and current functioning. Reviewed vital signs,~Labs/ Radiology~and current medications noted below. Continue current treatment with the changes noted in the dictated addendum note Assessment: Vital Signs: Vital Signs Date Time Temp Pulse Resp B/P Pulse Ox O2 Delivery O2 Flow Rate FiO2 02/09/17 19:06 98.1 61 20 112/70 94 Room Air I&O Intake and Output 02/09/17 07:00 Intake Total 400 ml Balance 400 ml Intake Oral 400 ml # Voids 10 Current Medications: Meds: Current Medications Calcium Carbonate/ Glycine (Tums) 500 mg PRN AFTMEALHC PRN PO INDIGESTION Last administered on 02/08/17 21:38; Start 02/06/17 at 15:15 Ketorolac Tromethamine (Toradol) 30 mg PRN Q6HRS PRN IV PAIN; Start 02/06/17 at 15:15; Stop 02/11/17 at 15:14 Multi-Ingredient Ointment (Analgesic [place]) 1 sara PRN QID PRN TP MUSCLE PAIN Last administered on 02/08/17 19:28; Start 02/06/17 at 15:15 Multivitamins/ Calcium (Thera-M Plus) 1 tab DAILY PO Last administered on 09:42; Start 02/07/17 at 09:00 Sertraline HCl (Zoloft) 50 mg DAILY PO Last administered on 02/09/17 09:42; Start 02/07/17 at 09:00 Tamsulosin HCl (Flomax) 0.4 mg DAILY PO Last administered on 02/09/17 09:42; Start 02/07/17 at 09:00 Folic Acid (Folic Acid) 1 mg DAILY PO Last administered on 02/09/17 09:43; Start 02/07/17 at 09:00 Thiamine HCl (Vitamin B-1) 100 mg DAILY PO Last administered on 02/09/17 09:43 ; Start 02/07/17 at 09:00 Olanzapine (Zyprexa) 2.5 mg PRN Q2HR PRN PO PSYCHOSIS Last administered on 02/06 21:04; Start 02/06/17 at 18:30 Diclofenac Sodium (Voltaren) 1 sara BID TP Last administered on 02/08/17 19:28 ; Start 02/08/17 at 21:00 Docusate Sodium (Colace) 100 mg DAILY PO ; Start 02/10/17 at 09:00 Magnesium Hydroxide (Milk Of Magnesia) 2,400 mg PRN DAILY PRN PO CONSTIPATION Last administered on 02/09/17 18:47; Start 02/09/17 at 18:45 Active Scripts Active [Thiamine Hcl] 100 MG Tablet 100 Mg PO DAILY Flomax (Tamsulosin Hcl) 0.4 Mg Cap.er.24h 0.4 Mg PO DAILY Sertraline Hcl 50 Mg Tablet 50 Mg PO DAILY Thera-M Tablet (Multivits,Ca,Minerals/Iron/Fa) 1 Each Tablet 1 Tab PO DAILY Analgesic [place] (Methyl Salicylate/Menthol) 29 Gm Oint...g. 1 Sara TP PRN QID PRN 14 Days Ketorolac Tromethamine 30 Mg/1 Ml Vial 30 Mg IV PRN Q6HRS PRN 3 Days [Folic Acid] 1 MG Tablet 1 Mg PO DAILY Calcium Carbonate 200 Mg Tab.chew 500 Mg PO PRN AFTMEALHC PRN YODIT MCDONALD MD Feb 09, 2017 20:50
[2017-02-09] MEDS: OLANZAPINE 2.5 MG TABLET PO PRN (22:56)
--- NOTE | 2017-02-09 23:34 | PN ---
DATE: 02/09/2017 PSYCHIATRIC PROGRESS NOTE SUBJECTIVE: The patient was seen on rounds the evening of 02/09/2017. Discussed with nursing staff, reviewed the chart. Overall, the patient is much more awake, alert, appropriate on the unit, not agitated, much less paranoid per nursing report. OBJECTIVE: VITAL SIGNS: Temperature 98.1, pulse 61, BP 112/70. REVIEW OF SYSTEMS: No CV, , pulmonary, eye, ENT system symptoms on review. MENTAL STATUS EXAMINATION: Oriented to himself and situation. Speech moderate latency, often responses monosyllabic, a little suspicious, but much more open as I sat with him. Denies psychotic symptoms, suicidal or homicidal ideation. Attention span short. Language function intact. IMPRESSION: Alcohol abuse, status post alcohol withdrawal; major neurocognitive disorder, early secondary to alcohol, vascular with depression, delusions; anxiety disorder, unspecified; impulse control disorder, unspecified. PLAN: Continue Zoloft 50 mg a day, thiamine together with Zyprexa p.r.n. MAN Jerry MCDONALD MD DR: ELIZABETH/adrian JOB#: [id number] / [id number]
[2017-02-10 06:59] VITALS: BP 108/68
[2017-02-10] MEDS: DICLOFENAC SODIUM 1% TOPICAL GEL 100GM TUBE. TP SCH ×2 (09:00→20:49)
[2017-02-10] MEDS: SERTRALINE 50 MG TABLET. PO SCH (10:46)
[2017-02-10] MEDS: MULTIVITAMIN with MINERAL TABLET. PO SCH (10:46)
[2017-02-10] MEDS: FOLIC ACID 1 MG TABLET PO SCH (10:46)
[2017-02-10] MEDS: DOCUSATE SODIUM 100 MG CAPSULE PO SCH (10:46)
[2017-02-10] MEDS: THIAMINE 100 MG TABLET. PO SCH (10:46)
[2017-02-10] MEDS: TAMSULOSIN 0.4 MG CAP.ER.24H. PO SCH (10:46)
[2017-02-10] MEDS: CALCIUM CARBONATE 500 MG TAB.CHEW PO PRN ×2 (12:12→19:57)
[2017-02-10 19:54] VITALS: BP 97/60
--- NOTE | 2017-02-10 20:47 | PDOC ---
Exam Sage Demential Exam: Sage Note: Please also refer to the separate dictated note~for this date of service dictated separately.~Patient seen individually. Discussed the patient with Nursing staff reviewed the chart.~Reviewed interim history and current functioning. Reviewed vital signs,~Labs/ Radiology~and current medications noted below. Continue current treatment with the changes noted in the dictated addendum note Assessment: Vital Signs: Vital Signs Date Time Temp Pulse Resp B/P Pulse Ox O2 Delivery O2 Flow Rate FiO2 02/10/17 19:54 98.4 73 20 97/60 95 Room Air I&O Intake and Output 02/10/17 07:00 Intake Total 1020 ml Balance 1020 ml Intake Oral 1020 ml # Voids 8 # Bowel Movements 1 Current Medications: Meds: Current Medications Calcium Carbonate/ Glycine (Tums) 500 mg PRN AFTMEALHC PRN PO INDIGESTION Last administered on 02/10/17 19:57; Start 02/06/17 at 15:15 Ketorolac Tromethamine (Toradol) 30 mg PRN Q6HRS PRN IV PAIN; Start 02/06/17 at 15:15; Stop 02/11/17 at 15:14 Multi-Ingredient Ointment (Analgesic [place]) 1 sara PRN QID PRN TP MUSCLE PAIN Last administered on 02/08/17 19:28; Start 02/06/17 at 15:15 Multivitamins/ Calcium (Thera-M Plus) 1 tab DAILY PO Last administered on 10:46; Start 02/07/17 at 09:00 Sertraline HCl (Zoloft) 50 mg DAILY PO Last administered on 02/10/17 10:46; Start 02/07/17 at 09:00 Tamsulosin HCl (Flomax) 0.4 mg DAILY PO Last administered on 02/10/17 10:46; Start 02/07/17 at 09:00 Folic Acid (Folic Acid) 1 mg DAILY PO Last administered on 02/10/17 10:46; Start 02/07/17 at 09:00 Thiamine HCl (Vitamin B-1) 100 mg DAILY PO Last administered on 02/10/17 10:46 ; Start 02/07/17 at 09:00 Olanzapine (Zyprexa) 2.5 mg PRN Q2HR PRN PO PSYCHOSIS Last administered on 02/09 22:56; Start 02/06/17 at 18:30 Diclofenac Sodium (Voltaren) 1 sara BID TP Last administered on 02/09/17 20:54 ; Start 02/08/17 at 21:00 Docusate Sodium (Colace) 100 mg DAILY PO Last administered on 02/10/17 10:46; Start 02/10/17 at 09:00 Magnesium Hydroxide (Milk Of Magnesia) 2,400 mg PRN DAILY PRN PO CONSTIPATION Last administered on 02/09/17 18:47; Start 02/09/17 at 18:45 Active Scripts Active [Thiamine Hcl] 100 MG Tablet 100 Mg PO DAILY Flomax (Tamsulosin Hcl) 0.4 Mg Cap.er.24h 0.4 Mg PO DAILY Sertraline Hcl 50 Mg Tablet 50 Mg PO DAILY Thera-M Tablet (Multivits,Ca,Minerals/Iron/Fa) 1 Each Tablet 1 Tab PO DAILY Analgesic [place] (Methyl Salicylate/Menthol) 29 Gm Oint...g. 1 Sara TP PRN QID PRN 14 Days Ketorolac Tromethamine 30 Mg/1 Ml Vial 30 Mg IV PRN Q6HRS PRN 3 Days [Folic Acid] 1 MG Tablet 1 Mg PO DAILY Calcium Carbonate 200 Mg Tab.chew 500 Mg PO PRN AFTMEALHC PRN Diagnosis: Problems: (1) Alcohol abuse YODIT MCDONALD MD Feb 10, 2017 20:47
[2017-02-11 05:58] VITALS: BP 101/60
[2017-02-11 07:52] LABS: ALBUMIN 2.5 g/dL (3.4-5.0); ALBUMIN/GLOBULIN RATIO 0.8 (1.0-1.7); CALCIUM 8.5 mg/dL (8.5-10.1); CREATININE 1.2 mg/dL (0.7-1.3); GFR 58.7; POTASSIUM 3.7 mmol/L (3.5-5.1); TOTAL BILIRUBIN 0.6 mg/dL (0.2-1.0); TOTAL PROTEIN 5.5 g/dL (6.4-8.2)
[2017-02-11 07:54] LABS: BASO % 1 % (0-3); EOS # 0.1 x10^3/uL (0.0-0.7); EOS % 1 % (0-3); HEMATOCRIT 36.4 % (39.0-53.0); HEMOGLOBIN 12.4 g/dL (13.0-17.5); LYMPH % 36 % (24-48); MEAN CORPUSCULAR HEMOGLOBIN 34 pg (25-35); MEAN CORPUSCULAR HGB CONC 34 g/dL (31-37); MEAN CORPUSCULAR VOLUME 99 fL (79-100); MONO % 17 % (0-9); NEUT # 2.5 x10^3uL (1.8-7.7); NEUT % 45 % (31-73); PLATELET COUNT 249 x10^3/uL (140-400); RED BLOOD COUNT 3.68 x10^6/uL (4.30-5.70); RED CELL DISTRIBUTION WIDTH 16.2 % (11.5-14.5); WHITE BLOOD COUNT 5.6 x10^3/uL (4.0-11.0)
[2017-02-11] MEDS: SERTRALINE 50 MG TABLET. PO SCH (08:16)
[2017-02-11] MEDS: TAMSULOSIN 0.4 MG CAP.ER.24H. PO SCH (08:16)
[2017-02-11] MEDS: FOLIC ACID 1 MG TABLET PO SCH (08:16)
[2017-02-11] MEDS: MULTIVITAMIN with MINERAL TABLET. PO SCH (08:16)
[2017-02-11] MEDS: THIAMINE 100 MG TABLET. PO SCH (08:16)
[2017-02-11] MEDS: DOCUSATE SODIUM 100 MG CAPSULE PO SCH (08:16)
[2017-02-11] MEDS: DICLOFENAC SODIUM 1% TOPICAL GEL 100GM TUBE. TP SCH ×2 (08:42→20:45)
[2017-02-11 14:54] VITALS: BP 95/60
[2017-02-11 19:56] VITALS: BP 103/67
[2017-02-11] MEDS: MAGNESIUM HYDROXIDE 2,400 MG/30 ML ORAL.SUSP. PO PRN (20:44)
--- NOTE | 2017-02-11 20:49 | PDOC ---
Exam Sage Demential Exam: Sage Note: Please also refer to the separate dictated note~for this date of service dictated separately.~Patient seen individually. Discussed the patient with Nursing staff reviewed the chart.~Reviewed interim history and current functioning. Reviewed vital signs,~Labs/ Radiology~and current medications noted below. Continue current treatment with the changes noted in the dictated addendum note Assessment: Vital Signs: Vital Signs Date Time Temp Pulse Resp B/P Pulse Ox O2 Delivery O2 Flow Rate FiO2 02/11/17 19:56 98.1 60 16 103/67 93 Room Air I&O Intake and Output 02/11/17 07:00 Intake Total 301 ml Balance 301 ml Intake Oral 301 ml # Voids 3 Labs: Laboratory Tests Test 02/11/17 07:26 White Blood Count 5.6x10^3/uL (4.0-11.0) Red Blood Count 3.68x10^6/uL (4.30-5.70) L Hemoglobin 12.4g/dL (13.0-17.5) L Hematocrit 36.4% (39.0-53.0) L Mean Corpuscular Volume 99fL (79-100) Mean Corpuscular Hemoglobin 34pg (25-35) Mean Corpuscular Hemoglobin Concent 34g/dL (31-37) Red Cell Distribution Width 16.2% (11.5-14.5) H Platelet Count 249x10^3/uL (140-400) # Neutrophils (%) (Auto) 45% (31-73) Lymphocytes (%) (Auto) 36% (24-48) Monocytes (%) (Auto) 17% (0-9) H Eosinophils (%) (Auto) 1% (0-3) Basophils (%) (Auto) 1% (0-3) Neutrophils # (Auto) 2.5x10^3uL (1.8-7.7) Lymphocytes # (Auto) 2.0x10^3/uL (1.0-4.8) Monocytes # (Auto) 1.0x10^3/uL (0.0-1.1) Eosinophils # (Auto) 0.1x10^3/uL (0.0-0.7) Basophils # (Auto) 0.0x10^3/uL (0.0-0.2) Sodium Level 143mmol/L (136-145) Potassium Level 3.7mmol/L (3.5-5.1) Chloride Level 107mmol/L (98-107) Carbon Dioxide Level 31mmol/L (21-32) Anion Gap 5 (6-14) L Blood Urea Nitrogen 11mg/dL (8-26) Creatinine 1.2mg/dL (0.7-1.3) Estimated GFR (Cockcroft-Gault) 58.7 BUN/Creatinine Ratio 9 (6-20) Glucose Level 105mg/dL (70-99) H Calcium Level 8.5mg/dL (8.5-10.1) Total Bilirubin 0.6mg/dL (0.2-1.0) Aspartate Amino Transferase (AST) 60U/L (15-37) H Alanine Aminotransferase (ALT) 167U/L (16-63) H Alkaline Phosphatase 201U/L (46-116) H Total Protein 5.5g/dL (6.4-8.2) L Albumin 2.5g/dL (3.4-5.0) L Albumin/Globulin Ratio 0.8 (1.0-1.7) L Current Medications: Meds: Current Medications Calcium Carbonate/ Glycine (Tums) 500 mg PRN AFTMEALHC PRN PO INDIGESTION Last administered on 02/10/17 19:57; Start 02/06/17 at 15:15 Ketorolac Tromethamine (Toradol) 30 mg PRN Q6HRS PRN IV PAIN; Start 02/06/17 at 15:15; Stop 02/11/17 at 15:14; Status DC Multi-Ingredient Ointment (Analgesic [place]) 1 sara PRN QID PRN TP MUSCLE PAIN Last administered on 02/08/17 19:28; Start 02/06/17 at 15:15 Multivitamins/ Calcium (Thera-M Plus) 1 tab DAILY PO Last administered on 08:16; Start 02/07/17 at 09:00 Sertraline HCl (Zoloft) 50 mg DAILY PO Last administered on 02/11/17 08:16; Start 02/07/17 at 09:00 Tamsulosin HCl (Flomax) 0.4 mg DAILY PO Last administered on 02/11/17 08:16; Start 02/07/17 at 09:00 Folic Acid (Folic Acid) 1 mg DAILY PO Last administered on 02/11/17 08:16; Start 02/07/17 at 09:00 Thiamine HCl (Vitamin B-1) 100 mg DAILY PO Last administered on 02/11/17 08:16 ; Start 02/07/17 at 09:00 Olanzapine (Zyprexa) 2.5 mg PRN Q2HR PRN PO PSYCHOSIS Last administered on 02/09 22:56; Start 02/06/17 at 18:30 Diclofenac Sodium (Voltaren) 1 sara BID TP Last administered on 02/10/17 20:49 ; Start 02/08/17 at 21:00 Docusate Sodium (Colace) 100 mg DAILY PO Last administered on 02/11/17 08:16; Start 02/10/17 at 09:00 Magnesium Hydroxide (Milk Of Magnesia) 2,400 mg PRN DAILY PRN PO CONSTIPATION Last administered on 02/11/17 20:44; Start 02/09/17 at 18:45 Active Scripts Active [Thiamine Hcl] 100 MG Tablet 100 Mg PO DAILY Flomax (Tamsulosin Hcl) 0.4 Mg Cap.er.24h 0.4 Mg PO DAILY Sertraline Hcl 50 Mg Tablet 50 Mg PO DAILY Thera-M Tablet (Multivits,Ca,Minerals/Iron/Fa) 1 Each Tablet 1 Tab PO DAILY Analgesic [place] (Methyl Salicylate/Menthol) 29 Gm Oint...g. 1 Sara TP PRN QID PRN 14 Days Ketorolac Tromethamine 30 Mg/1 Ml Vial 30 Mg IV PRN Q6HRS PRN 3 Days [Folic Acid] 1 MG Tablet 1 Mg PO DAILY Calcium Carbonate 200 Mg Tab.chew 500 Mg PO PRN AFTMEALHC PRN YODIT MCDONALD MD Feb 11, 2017 20:49
--- NOTE | 2017-02-11 21:15 | PN ---
DATE: 02/10/2017 PSYCHIATRIC PROGRESS NOTE This is late entry of 02/10/2017, covers elements not covered in my initial note. SUBJECTIVE: Per nursing report, the patient has been doing better, more awake, alert, interactive. He dressed himself, which is quite an improvement. He does admit to being tired. Gait is somewhat unsteady. REVIEW OF SYSTEMS: No CV, , pulmonary, eye system symptoms on review. MENTAL STATUS EXAMINATION: Speech moderate latency, oriented to himself and situation. Abstraction fair, computation impaired, language function intact. Attention span short. We discussed his alcohol abuse and need to abstain from it. He seemed to be able to understand it, but not totally insightful. LABORATORY DATA: Reviewed. IMPRESSION: Unchanged from initial note. PLAN: Continue current psychotropics. No change for now. MAN Jerry MCDONALD MD DR: ELIZABETH/adrian JOB#: [id number] / [id number]
[2017-02-12 06:06] VITALS: BP 101/60
[2017-02-12] MEDS: TAMSULOSIN 0.4 MG CAP.ER.24H. PO SCH (07:49)
[2017-02-12] MEDS: MULTIVITAMIN with MINERAL TABLET. PO SCH (07:50)
[2017-02-12] MEDS: THIAMINE 100 MG TABLET. PO SCH (07:50)
[2017-02-12] MEDS: DOCUSATE SODIUM 100 MG CAPSULE PO SCH (07:50)
[2017-02-12] MEDS: FOLIC ACID 1 MG TABLET PO SCH (07:50)
[2017-02-12] MEDS: SERTRALINE 50 MG TABLET. PO SCH (07:50)
[2017-02-12] MEDS: DICLOFENAC SODIUM 1% TOPICAL GEL 100GM TUBE. TP SCH ×2 (07:51→20:46)
[2017-02-12 10:09] VITALS: BP 99/64
[2017-02-12] MEDS: OLANZAPINE 2.5 MG TABLET PO PRN (10:28)
[2017-02-12 18:23] VITALS: BP 93/55
--- NOTE | 2017-02-12 20:54 | PDOC ---
Exam Sage Demential Exam: Sage Note: Please also refer to the separate dictated note~for this date of service dictated separately.~Patient seen individually. Discussed the patient with Nursing staff reviewed the chart.~Reviewed interim history and current functioning. Reviewed vital signs,~Labs/ Radiology~and current medications noted below. Continue current treatment with the changes noted in the dictated addendum note Assessment: Vital Signs: Vital Signs Date Time Temp Pulse Resp B/P Pulse Ox O2 Delivery O2 Flow Rate FiO2 02/12/17 18:23 97.9 79 20 93/55 93 Room Air I&O Intake and Output 02/12/17 07:00 Intake Total 1040 ml Balance 1040 ml Intake Oral 1040 ml # Voids 6 Current Medications: Meds: Current Medications Calcium Carbonate/ Glycine (Tums) 500 mg PRN AFTMEALHC PRN PO INDIGESTION Last administered on 02/10/17 19:57; Start 02/06/17 at 15:15 Ketorolac Tromethamine (Toradol) 30 mg PRN Q6HRS PRN IV PAIN; Start 02/06/17 at 15:15; Stop 02/11/17 at 15:14; Status DC Multi-Ingredient Ointment (Analgesic [place]) 1 sara PRN QID PRN TP MUSCLE PAIN Last administered on 02/08/17 19:28; Start 02/06/17 at 15:15 Multivitamins/ Calcium (Thera-M Plus) 1 tab DAILY PO Last administered on 07:50; Start 02/07/17 at 09:00 Sertraline HCl (Zoloft) 50 mg DAILY PO Last administered on 02/12/17 07:50; Start 02/07/17 at 09:00 Tamsulosin HCl (Flomax) 0.4 mg DAILY PO Last administered on 02/12/17 07:49; Start 02/07/17 at 09:00 Folic Acid (Folic Acid) 1 mg DAILY PO Last administered on 02/12/17 07:50; Start 02/07/17 at 09:00 Thiamine HCl (Vitamin B-1) 100 mg DAILY PO Last administered on 02/12/17 07:50 ; Start 02/07/17 at 09:00 Olanzapine (Zyprexa) 2.5 mg PRN Q2HR PRN PO PSYCHOSIS Last administered on 02/12 10:28; Start 02/06/17 at 18:30 Diclofenac Sodium (Voltaren) 1 sara BID TP Last administered on 02/10/17 20:49 ; Start 02/08/17 at 21:00 Docusate Sodium (Colace) 100 mg DAILY PO Last administered on 02/12/17 07:50; Start 02/10/17 at 09:00 Magnesium Hydroxide (Milk Of Magnesia) 2,400 mg PRN DAILY PRN PO CONSTIPATION Last administered on 02/11/17 20:44; Start 02/09/17 at 18:45 Active Scripts Active [Thiamine Hcl] 100 MG Tablet 100 Mg PO DAILY Flomax (Tamsulosin Hcl) 0.4 Mg Cap.er.24h 0.4 Mg PO DAILY Sertraline Hcl 50 Mg Tablet 50 Mg PO DAILY Thera-M Tablet (Multivits,Ca,Minerals/Iron/Fa) 1 Each Tablet 1 Tab PO DAILY Analgesic [place] (Methyl Salicylate/Menthol) 29 Gm Oint...g. 1 Sara TP PRN QID PRN 14 Days Ketorolac Tromethamine 30 Mg/1 Ml Vial 30 Mg IV PRN Q6HRS PRN 3 Days [Folic Acid] 1 MG Tablet 1 Mg PO DAILY Calcium Carbonate 200 Mg Tab.chew 500 Mg PO PRN AFTMEALHC PRN YODIT MCDONALD MD Feb 12, 2017 20:54
[2017-02-13 04:38] VITALS: BP 97/62
[2017-02-13] MEDS: DICLOFENAC SODIUM 1% TOPICAL GEL 100GM TUBE. TP SCH ×3 (09:00→19:56)
[2017-02-13] MEDS: TAMSULOSIN 0.4 MG CAP.ER.24H. PO SCH (09:10)
[2017-02-13] MEDS: FOLIC ACID 1 MG TABLET PO SCH (09:10)
[2017-02-13] MEDS: MULTIVITAMIN with MINERAL TABLET. PO SCH (09:10)
[2017-02-13] MEDS: DOCUSATE SODIUM 100 MG CAPSULE PO SCH (09:10)
[2017-02-13] MEDS: THIAMINE 100 MG TABLET. PO SCH (09:10)
[2017-02-13] MEDS: SERTRALINE 50 MG TABLET. PO SCH (09:10)
[2017-02-13 10:06] VITALS: BP 91/61
[2017-02-13 18:24] VITALS: BP 102/57
--- NOTE | 2017-02-13 20:46 | PDOC ---
Exam Sage Demential Exam: Sage Note: Please also refer to the separate dictated note~for this date of service dictated separately.~Patient seen individually. Discussed the patient with Nursing staff reviewed the chart.~Reviewed interim history and current functioning. Reviewed vital signs,~Labs/ Radiology~and current medications noted below. Continue current treatment with the changes noted in the dictated addendum note Assessment: Vital Signs: Vital Signs Date Time Temp Pulse Resp B/P Pulse Ox O2 Delivery O2 Flow Rate FiO2 02/13/17 20:30 Room Air 02/13/17 18:24 98.2 68 20 102/57 97 I&O Intake and Output 02/13/17 07:00 Intake Total 1720 ml Balance 1720 ml Intake Oral 1720 ml # Voids 4 # Bowel Movements 1 Current Medications: Meds: Current Medications Calcium Carbonate/ Glycine (Tums) 500 mg PRN AFTMEALHC PRN PO INDIGESTION Last administered on 02/10/17 19:57; Start 02/06/17 at 15:15 Ketorolac Tromethamine (Toradol) 30 mg PRN Q6HRS PRN IV PAIN; Start 02/06/17 at 15:15; Stop 02/11/17 at 15:14; Status DC Multi-Ingredient Ointment (Analgesic [place]) 1 sara PRN QID PRN TP MUSCLE PAIN Last administered on 02/08/17 19:28; Start 02/06/17 at 15:15 Multivitamins/ Calcium (Thera-M Plus) 1 tab DAILY PO Last administered on 09:10; Start 02/07/17 at 09:00 Sertraline HCl (Zoloft) 50 mg DAILY PO Last administered on 02/13/17 09:10; Start 02/07/17 at 09:00 Tamsulosin HCl (Flomax) 0.4 mg DAILY PO Last administered on 02/13/17 09:10; Start 02/07/17 at 09:00 Folic Acid (Folic Acid) 1 mg DAILY PO Last administered on 02/13/17 09:10; Start 02/07/17 at 09:00 Thiamine HCl (Vitamin B-1) 100 mg DAILY PO Last administered on 02/13/17 09:10 ; Start 02/07/17 at 09:00 Olanzapine (Zyprexa) 2.5 mg PRN Q2HR PRN PO PSYCHOSIS Last administered on 02/12 10:28; Start 02/06/17 at 18:30 Diclofenac Sodium (Voltaren) 1 sara BID TP Last administered on 02/10/17 20:49 ; Start 02/08/17 at 21:00 Docusate Sodium (Colace) 100 mg DAILY PO Last administered on 02/13/17 09:10; Start 02/10/17 at 09:00 Magnesium Hydroxide (Milk Of Magnesia) 2,400 mg PRN DAILY PRN PO CONSTIPATION Last administered on 02/11/17 20:44; Start 02/09/17 at 18:45 Active Scripts Active [Thiamine Hcl] 100 MG Tablet 100 Mg PO DAILY Flomax (Tamsulosin Hcl) 0.4 Mg Cap.er.24h 0.4 Mg PO DAILY Sertraline Hcl 50 Mg Tablet 50 Mg PO DAILY Thera-M Tablet (Multivits,Ca,Minerals/Iron/Fa) 1 Each Tablet 1 Tab PO DAILY Analgesic [place] (Methyl Salicylate/Menthol) 29 Gm Oint...g. 1 Sara TP PRN QID PRN 14 Days Ketorolac Tromethamine 30 Mg/1 Ml Vial 30 Mg IV PRN Q6HRS PRN 3 Days [Folic Acid] 1 MG Tablet 1 Mg PO DAILY Calcium Carbonate 200 Mg Tab.chew 500 Mg PO PRN AFTMEALHC PRN YODIT MCDONALD MD Feb 13, 2017 20:46
[2017-02-14] MEDS: CALCIUM CARBONATE 500 MG TAB.CHEW PO PRN (04:21)
[2017-02-14 05:32] VITALS: BP 117/73
[2017-02-14] MEDS: FOLIC ACID 1 MG TABLET PO SCH (08:16)
[2017-02-14] MEDS: SERTRALINE 50 MG TABLET. PO SCH (08:16)
[2017-02-14] MEDS: MULTIVITAMIN with MINERAL TABLET. PO SCH (08:16)
[2017-02-14] MEDS: TAMSULOSIN 0.4 MG CAP.ER.24H. PO SCH (08:16)
[2017-02-14] MEDS: THIAMINE 100 MG TABLET. PO SCH (08:16)
[2017-02-14] MEDS: DICLOFENAC SODIUM 1% TOPICAL GEL 100GM TUBE. TP SCH (08:16)
[2017-02-14] MEDS: DOCUSATE SODIUM 100 MG CAPSULE PO SCH (08:16)
[2017-02-14] MEDS ORDERED: DICL100G7 TP (10:56)
[2017-02-14] MEDS ORDERED: Olanzapine PO (10:56)
--- NOTE | 2017-02-14 11:51 | DS ---
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 He has been recovering; receiving physical and occupational therapy, psychiatric care from Dr. Styles. The patient has made good progress while here. He has been unable to at least mobilize and fairly steadily he still needs a walker. He has been told that he needs walker when he goes home. In any case, the patient made good progress during the rest of his hospitalization. See MRAD. Decreased activity and better diet. No alcohol. No driving and he is to return to clinic in 2-3 weeks for followup. IMPRESSION: Alcoholic encephalopathy, generalized weakness, failure to thrive, and elevated liver enzymes. LUZ TYLER MD DR: IRVIN/adrian JOB#: [id number] / [id number]
== END 2017-02-14 12:38 | disposition home health service (06) | DRG 56 ==
LOC: 1 SOUTH 14:00
PROVIDERS: ADMIT Family Medicine; ATTEND Family Medicine
DX: G31.2 Degeneration of nervous system due to alcohol (principal); G93.41 Metabolic encephalopathy; F10.231 Alcohol dependence with withdrawal delirium; E78.5 Hyperlipidemia, unspecified; F01.50 Vascular dementia, unspecified severity, without behavioral disturbance, psychotic disturbance, mood disturbance, and anxiety; I10 Essential (primary) hypertension; M54.30 Sciatica, unspecified side; R62.7 Adult failure to thrive; F32.9 Major depressive disorder, single episode, unspecified; F41.9 Anxiety disorder, unspecified; F63.9 Impulse disorder, unspecified; F91.9 Conduct disorder, unspecified; R29.6 Repeated falls; Z87.891 Personal history of nicotine dependence
CPT/HCPCS: 36415; 71010; 80053; 85027; 97110; 97116; 97530; 97535

== ENCOUNTER 2017-03-20 20:09 | Emergency (ER) | payer MEDICARE, BC ==
[~2017-03-20] VITALS: Ht 177.8 cm; Wt 70.8 kg
[~2017-03-20 20:09] MED LIST changes: +CALC200T23 PO; +DICL100G18 TP; +Folic Acid PO; +KETO30VI27 IV; +METH29OI TP; +MULT1TAB90 PO; +Olanzapine PO; +PRED5DRO16 RIGHTEYE; -PRED5DRO6 RIGHTEYE; +SERT50TA8 PO; +TAMS0.4C97 PO; +Thiamine Hcl PO
[2017-03-20 20:28] VITALS: BP 125/84
--- NOTE | 2017-03-20 21:37 | RAD ---
Left upper extremity venous Doppler ultrasound HISTORY: Palpable area in region of biceps tonight COMPARISON: None FINDINGS: Multiple grayscale, color, duplex spectral analysis waveform images of the left upper extremity veins are submitted. There is abnormal internal echogenicity in the left cephalic vein extending from the level of the mid bicep region to the antecubital fossa, occlusive. Remainder of the interrogated left upper extremity veins are patent with normal phasicity and color-flow as well as waveforms. Left internal jugular vein is patent. IMPRESSION: 1. There is occlusive thrombus segment of the left cephalic vein extending from mid bicep region to the antecubital fossa. FOR INTERNAL CODING PURPOSES Critical result: Findings discussed with Dr. Harris at 03/20/2017 9:33 PM. RESULT CODE: (C) Electronically signed by: Olegario Blum MD (03/20/2017 9:33 PM)
[2017-03-20] MEDS ORDERED: CEPHALEXIN 500 MG CAPSULE PO ONE (21:45)
[2017-03-20] MEDS ORDERED: IBUPROFEN 600 MG TABLET. PO ONE (21:45)
--- NOTE | 2017-03-21 00:40 | ED.ADGEN ---
Past History Past Medical History: No Pertinent History Past Surgical History: No Surgical History Alcohol Use: Rarely Drug Use: None Adult General Chief Complaint Chief Complaint Palpable cord left bicep HPI HPI Patient is a 76-year-old right-handed male presents with palpable cord or overlying vein and left bicep first noticed this evening. Denies injury. Patient takes daily aspirin but no other medications. No history of DVT or PE. No other symptoms or complaints Review of Systems Review of Systems ROS as per HPI. Current Medications Current Medications Current Medications Medications (Trade) Dose Ordered Sig/Nery Start Time Stop Time Status Last Admin Dose Admin Cephalexin HCl (Keflex) 500 mg 1X ONCE 03/20/17 21:45 03/20/17 21:46 DC 03/20/17 21:45 500 MG Ibuprofen (Motrin) 600 mg 1X ONCE 03/20/17 21:45 03/20/17 21:46 DC 03/20/17 21:45 600 MG Allergies Allergies Allergies Coded Allergies Type Severity Reaction Last Updated Verified No Known Drug Allergies 02/22/15 No Physical Exam Physical Exam Constitutional: Well developed, well nourished, no acute distress, non-toxic appearance. [] HENT: Normocephalic, atraumatic, bilateral external ears normal, oropharynx moist, no oral exudates, nose normal. [] Eyes: PERRLA, EOMI, conjunctiva normal, no discharge. [] Neck: Normal range of motion, no tenderness, supple, no stridor. [] Cardiovascular:Heart rate regular rhythm, no murmur [] Lungs & Thorax: Bilateral breath sounds clear to auscultation [] Abdomen: Bowel sounds normal, soft, no tenderness, no masses, no pulsatile masses. [] Skin: Warm, dry, no erythema, no rash. [] Back: No tenderness, no CVA tenderness. [] Extremities: Left upper extremity, palpable cord over cephalic vein. No tenderness in the erythema noted. No streaking or cellulitis appreciated. No bruising or evidence of injury. Neurologic: Alert and oriented X 3, normal motor function, normal sensory function, no focal deficits noted. [] Psychologic: Affect normal, judgement normal, mood normal. [] Current Patient Data Vital Signs Vital Signs Date Time Temp Pulse Resp B/P (MAP) Pulse Ox O2 Delivery O2 Flow Rate FiO2 03/20/17 21:50 97.6 03/20/17 20:28 93 20 95 Room Air EKG EKG [] Radiology/Procedures Radiology/Procedures [Left upper extremity, venous Doppler ultrasound: Occlusive disease involving left cephalic vein extending to the antecubital fossa. No DVT present] Course & Med Decision Making Course & Med Decision Making Pertinent Labs and Imaging studies reviewed. (See chart for details) [Patient placed in compression bandage and given anti-inflammatories antibiotics in the ED. Patient prefers not to start anticoagulation therapy if possible. Will defer further management to PCP with instructions to follow-up early next week. Return precautions reviewed.] Final Impression Final Impression [1. Superficial thrombo-phlebits of left upper extremity] Problems: Dragon Disclaimer Dragon Disclaimer This electronic medical record was generated, in whole or in part, using a voice recognition dictation system. PEACE SALDANA DO March 21, 2017 00:40
== END 2017-03-20 21:50 | disposition home or self-care (01) ==
LOC: ER 20:23
DX: I80.8 Phlebitis and thrombophlebitis of other sites (principal)
CPT/HCPCS: 93971; 99284-25

== ENCOUNTER → 2018-06-08 | Day surgery (SDC) | payer MEDICARE, BC ==
[~2018-06-08] MED LIST changes: +ASPI81TA50 PO; +DOXA2TAB2 PO; -IBUP200T43 PO; +IBUP200T44 PO; +IV RINGERS SOLUTION,LACTATED 1,000 ML IV SCH; +LIDOCAINE 1% PF 2 ML VIAL. ID PRN; -METO50TA10 PO; +METO50TA29 PO; +ONDANSETRON PF 4 MG/2 ML VIAL. IV PRN; +PROPOFOL 10,000 MCG/ML (20ML) VIAL IV ONE; +PROPOFOL 40 ML IV ONE
[2018-06-08 09:59] VITALS: BP 128/78
== END | disposition home or self-care (01) ==
LOC: SURG 07:24
PROVIDERS: ATTEND Internal Medicine Gastroenterology
DX: K59.00 Constipation, unspecified (principal); I10 Essential (primary) hypertension; N40.0 Benign prostatic hyperplasia without lower urinary tract symptoms; E78.5 Hyperlipidemia, unspecified; Z79.899 Other long term (current) drug therapy; E78.00 Pure hypercholesterolemia, unspecified; M19.90 Unspecified osteoarthritis, unspecified site
CPT/HCPCS: 45378; J2704; J7120

== ENCOUNTER → 2021-05-17 | Outpatient (CLI) | payer MEDICARE, BC ==
[2018-06-08 09:59] VITALS: BP 128/78
[~2021-05-17] MED LIST changes: +AMLO-187 PO; -AMLO10TA2 PO; +HYDR-3165 PO; -HYDR-971 PO; -IV RINGERS SOLUTION,LACTATED 1,000 ML IV SCH; -LIDOCAINE 1% PF 2 ML VIAL. ID PRN; +MOXI3DRO18 RIGHTEYE; -MOXI3DRO2 RIGHTEYE; -MULT1TAB90 PO; +MULT1TAB92 PO; -ONDANSETRON PF 4 MG/2 ML VIAL. IV PRN; -PROPOFOL 10,000 MCG/ML (20ML) VIAL IV ONE; -PROPOFOL 40 ML IV ONE; +SERT-268 PO; -SERT50TA8 PO
--- NOTE | 2021-05-19 08:51 | RAD ---
CT scan of the pelvis without contrast 05/17/2021 CLINICAL HISTORY: Pelvic and hip pain. TECHNIQUE: Unenhanced contiguous, 0.625 mm axial sections were obtained through the pelvis to include both hips. 3 mm reconstructed sagittal, axial coronal images were obtained. One or more of the following individualized dose reduction techniques were utilized for this study: 1. Automated exposure control. 2. Adjustment of the mA and/or kV according to patient size. 3. Use of iterative reconstruction technique. FINDINGS: There is diffuse osteopenia the visualized bony structures. No pelvic bone fractures seen. No fracture or dislocation of either hip is noted. Degenerative changes are seen involving the L4-5 a nd L5-S1 disc spaces consisting of disc space narrowing, vertebral endplate sclerosis, vacuum disc ph enomenon and mild to moderate anterior and posterior vertebral body osteophyte formation along with f acet hypertrophy. Mild central spinal canal stenosis is seen at L4-5. Mild bilateral neural foraminal stenosis is seen at L4-5. Moderate bilateral neural foraminal stenosis is seen at L5-S1. Mild degene rative changes are seen involving both SI joints. Mild to moderate degenerative changes are seen invo lving both hips. Scattered diverticula are seen involving the sigmoid colon. No inflammatory changes are seen adjacent fat. Atherosclerotic calcification of the distal abdominal aorta and its branches is noted. Calcific ations are seen within the pelvis consistent with phleboliths. No free fluid or pelvic hematoma is se en. IMPRESSION: No acute osseous abnormality is seen. Electronically signed by: Socrates Moseley MD (05/19/2021 8:48 AM) [id number]
== END ==
LOC: CT 12:26
PROVIDERS: ATTEND Family Medicine
DX: M25.551 Pain in right hip (principal); M25.552 Pain in left hip
CPT/HCPCS: 72192

== ENCOUNTER 2021-11-26 12:07 | Emergency (ER) | payer BC, MEDICARE ==
[~2021-11-26] VITALS: Ht 180.3 cm; Wt 70.8 kg
[2021-11-26 12:22] VITALS: BP 141/81
--- NOTE | 2021-11-26 12:30 | PHYS DOC ---
Past History Past Medical History: No Pertinent History Past Surgical History: No Surgical History Alcohol Use: Rarely Drug Use: None Adult General Chief Complaint Chief Complaint: BACK PAIN OR INJURY [facility] HPI Patient is a 81 year old with history of HTN and chronic back pain. Here today for acute on chronic back pain in his right lower side that radiates across his back into the left side. This started approximately two days ago. He is scheduled for an outpatient MRI on 11/29 and is receiving hydrocodone and diazepam from his PCP for his back pain that has not helped much. He was sent here today by his PCP office in hopes that his MRI could be moved up. He is unable to ambulate independently due to the pain and notes mild tenderness when he palpates the area. He states that he has chronic back pain for a couple of years has had a previous MRI. He has not had changes in bowel or bladder habits, fever, nausea or vomiting, numbness, tingling, or muscle weakness. He does not report any loss of bowel or bladder function. Review of Systems Review of Systems Fourteen body systems of review of systems have been reviewed. See HPI for pertinent positives and negative responses, other hoang all other systems are negative, non-pertinent or non-contributory Allergies Allergies Allergies Coded Allergies Type Severity Reaction Last Updated Verified No Known Drug Allergies 06/08/18 No Physical Exam Physical Exam Constitutional: Well developed, well nourished, no acute distress, non-toxic appearance. HENT: Normocephalic, atraumatic, bilateral external ears normal, oropharynx moist, no oral exudates, nose normal. Eyes: PERRLA, EOMI, conjunctiva normal, no discharge. Neck: Normal range of motion, no tenderness, supple, no stridor. Cardiovascular: Heart rate regular, sinus rhythm, no murmurs rubs or gallops Lungs & Thorax: Bilateral breath sounds clear to auscultation Abdomen: Bowel sounds normal, soft, no tenderness, no masses, no pulsatile masses. Nonsurgical abdomen, no peritoneal signs Skin: Warm, dry, no erythema, no rash. Back: No midline tenderness, no CVA tenderness. Extremities: No tenderness, no cyanosis, no clubbing, ROM intact, no edema. Negative Joey bilaterally Neurologic: Alert and oriented X 3, no saddle anesthesia, downgoing toes bilaterally to stimulation, 2+ patellar reflexes bilaterally, normal motor & sensory function, no focal deficits noted. Psychologic: Affect normal, judgement normal, mood normal. Current Patient Data Vital Signs Vital Signs Date Time Temp Pulse Resp B/P (MAP) Pulse Ox O2 Delivery O2 Flow Rate FiO2 11/26/21 12:22 98.0 82 16 141/81 (101) 98 Room Air Vital Signs Date Time Temp Pulse Resp B/P (MAP) Pulse Ox O2 Delivery O2 Flow Rate FiO2 11/26/21 12:22 98.0 82 16 141/81 (101) 98 Room Air EKG EKG [] Radiology/Procedures Radiology/Procedures [] Heart Score C/O Chest Pain: No Risk Factors: Risk Factors: DM, Current or recent (<one month) smoker, HTN, HLP, family history of CAD, obesity. Risk Scores: Risk Factors: DM, Current or recent (<one month) smoker, HTN, HLP, family history of CAD, obesity. Course & Med Decision Making Course & Med Decision Making ABCs, history and physical examination non-concerning. There are no red flag signs of back pain present. I have low suspicion for malignancy/mets, acute Spinal Fracture, Vertebral Osteomyelitis, Epidural Abscess, Infected or Obstructing Kidney Stone. Their presentation appears most likely to be secondary to non-emergent musculoskeletal etiology vs non-emergent disc herniation. He is currently being worked up in outpatient setting by PCP, has had prior outpatient imaging and pending MRI in 72 hours ED Workup: Defer imaging and labwork for outpatient follow up at this time. [facility] reviewed concerning for recent benzodiazepine and concomitant Aurora 10 prescription. Reports Aurora helped with pain but high-dose caused him to feel funny prompting him to cut pills in half. Joint decision made to administer IM steroid and Aurora. Disposition: Discharge. Strict return precautions discussed with patient with full understanding. Advised patient to follow up promptly with primary care provider [place] Disclaimer Dragon Disclaimer This electronic medical record was generated, in whole or in part, using a voice recognition dictation system. Departure Departure: Impression: Primary Impression: Lower back pain Disposition: HOME / SELF CARE / HOMELESS Condition: STABLE Referrals: LUZ TYLER MD (PCP) Patient Instructions: Back Pain, Adult Additional Instructions: You were evaluated in the Emergency Department today for back pain. Your evaluation suggests no acute abnormalities which require further intervention at this time. You were given a new prescription for lower dose hydrocodone which should be used in conjunction with Tylenol and/or other NSAIDs as primary means of pain control. You are also given a steroid shot which should provide some additional relief for your back pain. Your pain is most likely due to to a musculoskeletal cause that should improve with supportive care. It is imperative that you contact your primary care physician to review ER visit today and need for advancement of MRI if able - Move around as tolerated but avoiding heavy lifting. ``Bed rest is not recommended nor is it the best treatment for low back pain. - Medications will help control your discomfort: - Tylenol - Do not drink alcohol, drive a car, operate machinery, or get up on ladders or heights when taking any prescribed pain medications. - Do not drive home if you received prescribed pain medications here in the ED. Return to the ED immediately if you develop any of the following problems: - Leaking urine or difficulty urinating; - Inability to control your bowels; - New numbness or weakness in your legs or numbness between your legs; - Inability to walk - Fever Scripts Hydrocodone Bit/Acetaminophen (HYDROCODONE-APAP 5-325 ) 1 Each Tablet 1 TAB PO PRN Q6HRS PRN for PAIN, #14 TAB 0 Refills Prov: BERNARDO PHILLIPS DO 11/26/21 BERNARDO PHILLIPS DO Nov 26, 2021 12:30
[2021-11-26] MEDS ORDERED: HYDR-2155 PO (13:26)
[2021-11-26] MEDS ORDERED: HYDROcodone/APAP 5/325MG 1 TAB TABLET PO ONE (13:30)
[2021-11-26] MEDS ORDERED: methylPREDNISolone ACETATE 40 MG/ML VIAL. IM ONE (13:30)
== END 2021-11-26 14:06 | disposition home or self-care (01) ==
LOC: ER 12:07
DX: G89.29 Other chronic pain (principal); M54.59 Other low back pain; I10 Essential (primary) hypertension
CPT/HCPCS: 96372; 99283; J1030

== ENCOUNTER → 2021-12-03 | Outpatient (CLI) | payer MEDICARE, BC ==
[2021-11-26 12:22] VITALS: BP 141/81
[~2021-12-03] MED LIST changes: +HYDR-2155 PO
--- NOTE | 2021-12-03 11:48 | RAD ---
EXAM: Lumbar spine CT without contrast. HISTORY: Pain. Difficulty walking. TECHNIQUE: Computed tomographic images of the lumbar spine were obtained without contrast. Multiplana r reformatting was performed. *One or more of the following individualized dose reduction techniques were utilized for this examina tion: 1. Automated exposure control. 2. Adjustment of the mA and/or kV according to patient size. 3. Use of iterative reconstruction technique. COMPARISON: None. FINDINGS: There is mild S-shaped lumbar scoliosis, with levocurvature centered at the upper lumbar le vels and dextrocurvature centered at the lower lumbar levels. There is mild rightward lateral transla tion of L4 on L5. There is mild retrolisthesis of L1 on L2, L2 on L3, L3 on L4 and L4 and L5. There i s multilevel endplate remodeling with disc space narrowing, osteophytosis and Schmorl's node formatio n. There is a vacuum phenomenon at all levels. There is no fracture or suspicious osseous lesion. There is a large hiatal hernia with intrathoracic positioning of the majority of the stomach. There is bilateral infrahilar compressive atelectasis. Th ere is aortobiiliac atherosclerosis. There is colonic diverticulosis. At L1-L2, there is a right paracentral to extra foraminal disc protrusion and osteophyte complex supe rimposed on a right lateral predominant disc bulge and endplate osteophytosis. There is mild retrolis thesis. There is moderate right foraminal stenosis. There is mild central canal stenosis. At L2-L3, there is a right extraforaminal to lateral disc osteophyte complex superimposed on a right lateral predominant disc bulge and endplate osteophytosis. There is mild retrolisthesis. There is mod erate right foraminal stenosis. There is [id number] central canal stenosis. At L3-L4, there is a disc bulge and endplate osteophytosis. There is moderate left greater than right facet arthropathy. There is mild retrolisthesis. There is mild right and moderate left foraminal oma nosis. There is moderate central canal stenosis. At L4-5, there is a left extraforaminal to lateral disc osteophyte complex superimposed on a disc bul ge and endplate osteophytosis. There is moderate bilateral facet arthropathy. There is mild retrolist hesis. There is moderate bilateral foraminal stenosis. There is mild central canal stenosis. At L5-S1, there is a disc bulge and endplate osteophytosis. There is severe right and mild left facet arthropathy. There is severe bilateral foraminal stenosis. IMPRESSION: 1. Multilevel degenerative change involving the lumbar spine, described in detail above. This results in significant stenosis of aforementioned levels. 2. No acute osseous finding. 3. Incidental large hiatal hernia and colonic diverticulosis. Electronically signed by: Opal Caba MD (12/03/2021 11:46 AM) [id number]
== END ==
LOC: CT 11:14
PROVIDERS: ATTEND Family Medicine
DX: S32.010A Wedge compression fracture of first lumbar vertebra, initial encounter for closed fracture (principal); J98.11 Atelectasis; I70.0 Atherosclerosis of aorta; K57.30 Diverticulosis of large intestine without perforation or abscess without bleeding; M47.816 Spondylosis without myelopathy or radiculopathy, lumbar region; M51.27 Other intervertebral disc displacement, lumbosacral region; M48.8X7 Other specified spondylopathies, lumbosacral region; M48.07 Spinal stenosis, lumbosacral region; M41.26 Other idiopathic scoliosis, lumbar region; M25.78 Osteophyte, vertebrae; M51.46 Schmorl's nodes, lumbar region; M43.16 Spondylolisthesis, lumbar region
CPT/HCPCS: 72131

== ENCOUNTER 2021-12-23 11:49 | Emergency (ER) | payer MEDICARE, BC ==
[~2021-12-23] VITALS: Ht 177.8 cm; Wt 79.5 kg
[2021-12-23] MEDS ORDERED: BISACODYL 10 MG SUPP.RECT PR ONE (12:15)
[2021-12-23] MEDS ORDERED: POLYETHYLENE GLYCOL 3350 17 GM PACKET. PO ONE (12:15)
[2021-12-23] MEDS ORDERED: GLYCERIN ADULT 1 SUPP.RECT. PR ONE (12:15)
--- NOTE | 2021-12-23 13:16 | PHYS DOC ---
Past History Past Medical History: No Pertinent History Past Surgical History: No Surgical History Alcohol Use: None Drug Use: None General Adult EDM: Chief Complaint: CONSTIPATION HPI: HPI: Patient is an 81 year old male who presents with small, infrequent bowel movements for the past 4 days. Patient reports history of constipation as well as hemorrhoids. Patient has been hesitant to strain too much, so as not to irritate or exacerbate hemorrhoids. Patient reports that since his passed recently, he has not been eating regularly. Additionally, his meals have not been well-rounded. He states he frequently drinks nutrition shakes or has frozen foods, when he does eat. Patient states he had a couple of "small, pebble sized" bowel movements this morning. He reports associated lower abdominal pain. Patient denies fever, chills, weakness, abdominal distention, NVD, bloody stools. Review of Systems: Review of Systems: Constitutional: See HPI Eyes: Denies change in visual acuity, visual field deficits or discharge HENT: Denies ear pain, nasal congestion or sore throat Respiratory: Denies cough or shortness of breath Cardiovascular: Denies chest pain, palpitations or edema GI: See HPI : Denies dysuria or hematuria Musculoskeletal: Denies back pain or joint pain Integument: Denies rash or other skin lesion Neurologic: Denies headache, focal weakness or sensory changes Current Medications: Current Meds: Current Medications Medications (Trade) Dose Ordered Sig/[facility] Start Time Stop Time Status Last Admin Dose Admin Bisacodyl (Dulcolax Supp) 10 mg 1X ONCE 12/23/21 12:15 12/23/21 12:17 DC 12/23/21 12:25 10 MG Glycerin (Sani-Supp Adult) 1 supp 1X ONCE 12/23/21 12:15 12/23/21 12:17 DC 12/23/21 12:25 1 SUPP Polyethylene Glycol (miraLAX) 34 gm 1X ONCE 12/23/21 12:15 12/23/21 12:17 DC 12/23/21 12:27 34 GM Allergies: Allergies: Allergies Coded Allergies Type Severity Reaction Last Updated Verified No Known Drug Allergies 06/08/18 No Physical Exam: PE: Constitutional: Well developed, well nourished, no acute distress, non-toxic appearance. HENT: Normocephalic, atraumatic, bilateral external ears normal, nose normal. Eyes: EOMI, conjunctiva normal, no discharge. Neck: Normal range of motion, no stridor. Abdomen: Bowel sounds normal, soft, low abdominal tenderness without rebound or guarding, no masses, no pulsatile masses. Skin: Warm, dry, no erythema, no rash. Back: No midline tenderness, no CVA tenderness. Extremities: No tenderness, no cyanosis, no clubbing, ROM intact, no edema. Neurologic: Alert and oriented x4, steady and symmetrical upright gait, no focal deficits noted. Current Patient Data: Vital Signs: Vital Signs Date Time Temp Pulse Resp B/P (MAP) Pulse Ox O2 Delivery O2 Flow Rate FiO2 12/23/21 11:58 98.1 95 16 116/72 (87) 96 Room Air Radiology/Procedures: Radiology/Procedures: PROCEDURE: KUB Supine abdomen. HISTORY: Constipation Supine views were taken of the abdomen. There are degenerative and hypertrophic change in lumbar spine. There is disc space narrowing at multiple levels in the lumbar spine. There is mild stool in the colon without evidence to suggest constipation. There is no small bowel obstruction. There is a left renal calc ulus. IMPRESSION: 1. No bowel obstruction. 2. There is not abnormal stool to suggest constipation. 3. Left renal calculus. Electronically signed by: Cezar Lipscomb MD (12/23/2021 2:51 PM) C-JOCY Heart Score: C/O Chest Pain: No Course & Med Decision Making: Course & Med Decision Making Pertinent Labs and Imaging studies reviewed. (See chart for details) Patient is an 81-year-old male with history of constipation and poor oral intake who presents with decreased bowel movements and slow abdominal pain. Patient provided with p.o. MiraLAX, Dulcolax suppository and glycerin suppository. Patient was able to pass bowel movement here in the emergency department, however it was not very large. KUB ordered to evaluate. Patient states that he feels like he has completely voided at this point. Counseled patient on adequat e oral intake of fiber, with supplementation as necessary. Additionally, patient should adjust stool softener dosages based on bowel movements frequency and consistency. Encouraged PO intake of food and fluids. Return precautions were provided. Patient understands and is agreeable to discharge plan. Kolby Disclaimer: Kolby Disclaimer: This electronic medical record was generated, in whole or in part, using a voice recognition dictation system. Departure Departure: Impression: Primary Impression: Constipation Qualified Codes: K59.00 - Constipation, unspecified Additional Impressions: Poor nutrition Left nephrolithiasis Disposition: HOME / SELF CARE / HOMELESS Condition: IMPROVED Referrals: LUZ TYLER MD (PCP) Patient Instructions: Constipation, Adult, [id number] Additional Instructions: EMERGENCY DEPARTMENT GENERAL DISCHARGE INSTRUCTIONS Thank you for coming to [facility] (ED) today and trusting us with you care. We trust that you had a positive experience in our Emergency Department. If you wish to speak to the department management, you may call the director at [phone]. YOUR FOLLOW UP INSTRUCTIONS ARE FOLLOWS: 1. Follow up with your primary care doctor. If you do not have a primary doctor, please ask for a resource list of physicians or clinics that may be able to assist you with follow up care. 2. The emergency provider has interpreted your imaging studies, if any were ordered. The radiology order management specialist also reviewed them. If there is a c hange in the findings, you will be notified in 48 hours when at all possible. 3. If a lab test or culture has been done, your results will be reviewed and you will be notified if you need a change in treatment. 4. Follow instructions verbalized to you and refer to the printouts if needed. - Take two doses of MiraLax (polyethylene glycol) powder daily - Use glycerin suppositories 20 mins prior to attempting to pass a bowel movement - Continue regular medications - May add fiber supplement to daily diet if not taking adequate fiber in your daily meals ADDITIONAL INSTRUCTIONS AND INFORMATION: 1. Your care today has been supervised by a physician who is specially trained in emergency care. Many problems require more than one evaluation for a complete diagnosis and treatment. We recommend that you schedule your follow up appointment as recommended to ensure complete treatment of you illness or injury. If you are unable to obtain follow up care and continue to have a problem, or if your condition worsens, we recommend that you return to the ED. 2. We are not able to safely determine your condition over the phone nor are we able to give sound medical advice over the phone. For these safety reasons, if you call for medical advice we will ask you to come to the ED for further evaluation. 3. If you have any questions regarding these discharge instructions please call the ED at [phone]. SAFETY INFORMATION: In the interest of safety, wellness, and injury prevention; we encourage you to wear your seat belt, if you smoke; quite smoking, and we encourage family to use a protective helmet for bicycling and other sporting events that present an increased risk for head injury. IF YOUR SYMPTOMS WORSEN OR NEW SYMPTOMS DEVELOP, OR YOU HAVE CONCERNS ABOUT YOUR CONDITION; OR IF YOUR CONDITION WORSENS WHILE YOU ARE WAITING FOR YOUR FOLLOW UP APPOINTMENT; EITHER CONTACT YOUR PRIMARY CARE DOCTOR, THE PHYSICIAN WHOSE NAME AND NUMBER YOU WERE GIVEN, OR RETURN TO THE ED IMMEDIATELY. RAIZA DE LA CRUZ Dec 23, 2021 13:16
[2021-12-23 14:24] VITALS: BP 131/87
--- NOTE | 2021-12-23 14:53 | RAD ---
Supine abdomen. HISTORY: Constipation Supine views were taken of the abdomen. There are degenerative and hypertrophic change in lumbar spin e. There is disc space narrowing at multiple levels in the lumbar spine. There is mild stool in the c olon without evidence to suggest constipation. There is no small bowel obstruction. There is a left r enal calculus. IMPRESSION: 1. No bowel obstruction. 2. There is not abnormal stool to suggest constipation. 3. Left renal calculus. Electronically signed by: Cezar Lipscomb MD (12/23/2021 2:51 PM) [facility]
== END 2021-12-23 14:40 | disposition home or self-care (01) ==
LOC: ER 11:49
DX: N20.0 Calculus of kidney (principal); K59.00 Constipation, unspecified
CPT/HCPCS: 74018; 99284

== ENCOUNTER → 2021-12-26 | Day surgery (SDC) | payer MEDICARE, BC ==
[~2021-12-26] MED LIST changes: +0.9 % SODIUM CHLORIDE 10 ML VIAL. ONE; +DEXAMETHASONE SOD PHOS 10 MG/ML VIAL. ONE; +IOHEXOL 300 MG/ML 50 ML VIAL. ONE; +LIDOCAINE 1% PF 30 ML VIAL. ONE
[2021-12-26 09:18] VITALS: BP 106/63
== END | disposition home or self-care (01) ==
LOC: SURG 09:09
PROVIDERS: ATTEND Anesthesiology
DX: M54.16 Radiculopathy, lumbar region (principal); I10 Essential (primary) hypertension; E78.5 Hyperlipidemia, unspecified; M79.18 Myalgia, other site; M51.36 Other intervertebral disc degeneration, lumbar region; M19.90 Unspecified osteoarthritis, unspecified site; Z79.899 Other long term (current) drug therapy; Z79.82 Long term (current) use of aspirin; Z98.49 Cataract extraction status, unspecified eye; Z87.891 Personal history of nicotine dependence
CPT/HCPCS: 62323; A4209; A4657; A4930; J1100; Q9967

== ENCOUNTER → 2022-01-29 | Day surgery (SDC) | payer MEDICARE, BC ==
[2022-01-29 10:35] VITALS: BP 109/58
== END | disposition home or self-care (01) ==
LOC: SURG 10:15
PROVIDERS: ATTEND Anesthesiology
DX: M54.16 Radiculopathy, lumbar region (principal); E78.5 Hyperlipidemia, unspecified; M19.90 Unspecified osteoarthritis, unspecified site; E11.65 Type 2 diabetes mellitus with hyperglycemia; E11.42 Type 2 diabetes mellitus with diabetic polyneuropathy; E11.22 Type 2 diabetes mellitus with diabetic chronic kidney disease; I25.10 Atherosclerotic heart disease of native coronary artery without angina pectoris; I12.9 Hypertensive chronic kidney disease with stage 1 through stage 4 chronic kidney disease, or unspecified chronic kidney disease; N18.9 Chronic kidney disease, unspecified; F41.9 Anxiety disorder, unspecified; F32.9 Major depressive disorder, single episode, unspecified; Z72.89 Other problems related to lifestyle; Z87.891 Personal history of nicotine dependence; Z88.8 Allergy status to other drugs, medicaments and biological substances; Z79.899 Other long term (current) drug therapy; Z79.82 Long term (current) use of aspirin; Z98.49 Cataract extraction status, unspecified eye; Z87.01 Personal history of pneumonia (recurrent); Z85.46 Personal history of malignant neoplasm of prostate; Z95.1 Presence of aortocoronary bypass graft
CPT/HCPCS: 64483; A4209; A4657; A4930; J1100; Q9967; 62323